=== PATIENT | female | born 1960 | race Caucasian/White ===

== ENCOUNTER 2021-03-22 10:46 | Inpatient (IN) | payer SELFPAY ==
[2021-03-22] MEDS ORDERED: Iopamidol-370 76% 500 ML 1 ML ONE (11:47)
[2021-03-22 12:40] LABS: #Lymphocytes 0.4 thou/uL (1.20-3.40); #Neutrophils 6.5 thou/uL (1.40-6.50); %Basophils 0.3 % (0.0-1.0); %Eosinophils 0.3 % (0.0-10.0); %Lymphocytes 5.4 % (21.0-51.0); Mean Corpuscular HGB CONC 28.5 g/dL (32.0-36.0); Mean Corpuscular Hemoglobin 16.6 pg (27.0-31.0); Mean Corpuscular Volume 58.1 fL (78.0-98.0); Mean Platelet Volume 5.3 fL (7.4-10.4); Platelet Count 552 thou/uL (130-400); RBC Distribution Width 19.3 % (11.5-14.5)
[2021-03-22 12:49] LABS: ALT (SGPT) 25 U/L (8-55); AST (SGOT) 33 U/L (5-34); Albumin 2.9 g/dL (3.5-5.0); Alkaline Phosphatase 75 U/L (40-110); Anion Gap 12 mmol/L (10-20); BUN (Urea Nitrogen) 18 mg/dL (9.8-20.1); Bilirubin, Total 0.4 mg/dL (0.2-1.2); Calc. Creatinine Clearance 0 mL/min (70-130); Calcium 8.4 mg/dL (7.8-10.44); Carbon Dioxide 21 mmol/L (22-29); Chloride 104 mmol/L (98-107); Globulin 2.6 g/dL (2.4-3.5); Glucose 83 mg/dL (70-105); Lipase Less than 4 U/L (8-78); Protein, Total 5.5 g/dL (6.0-8.3); Sodium 133 mmol/L (136-145)
[2021-03-22 12:57] LABS: Reflex for Review?? YES
[2021-03-22 12:58] LABS: Anisocytosis SLIGHT = 6-15 cells (100X) (0-5/hpf); Hypochromia MODERATE=16-30 cells (100X) (0-5/hpf); MDiff Complete? YES; Microcytosis MODERATE=15-30 cells (100X) (0-5/hpf); Ovalocytes SLIGHT = 2-5 cells (100X) (0-1/hpf); Platelet Morphology Comment Appears Increased; Polychromasia SLIGHT = 2-3 cells (100X) (0-2/hpf); Target Cells SLIGHT = 2-5 cells (100X) (0-1/hpf); Tear Drops SLIGHT = 2-5 cells (100X) (0-1/hpf)
[2021-03-22] MEDS ORDERED: Piperacillin/Tazobactam 4.5 GM VIAL ONE (13:59)
[2021-03-22 16:56] VITALS: BMI 18.8
[2021-03-22] MEDS: Sodium Chloride 0.9% 1,000 ML IV SCH (17:50)
[2021-03-22] MEDS ORDERED: GoLYTELY 4,000 ml Bottle PO SCH (18:00)
[2021-03-22] MEDS: Piperacillin/Tazobactam 3.375 GM in Sodium Chloride 0.9% 100 ML IVPB SCH (18:50)
[2021-03-22 19:28] LABS: Hemoglobin 6.7 g/dL (12.0-16.0); Mean Corpuscular HGB CONC 30.7 g/dL (32.0-36.0); Mean Corpuscular Hemoglobin 19.1 pg (27.0-31.0); Mean Corpuscular Volume 62.3 fL (78.0-98.0); Mean Platelet Volume 4.7 fL (7.4-10.4); Platelet Count 451 thou/uL (130-400); RBC Distribution Width 24.8 % (11.5-14.5); Red Blood Cell (RBC) Count 3.53 mill/uL (4.20-5.40); White Blood Cell (WBC) Count 7.1 thou/uL (4.8-10.8)
[2021-03-22] MEDS: Pantoprazole 40 MG VIAL IVP SCH (20:19)
[2021-03-22 20:37] LABS: SARS-CoV-2 NAA Rapid Test Not Detected (NotDetected)
[2021-03-23] MEDS: Piperacillin/Tazobactam 3.375 GM in Sodium Chloride 0.9% 100 ML IVPB SCH ×4 (02:45→21:58)
[2021-03-23] MEDS: Sodium Chloride 0.9% 1,000 ML IV SCH ×3 (02:45→22:29)
[2021-03-23 05:56] LABS: Iron 10 ug/dL (50-170); Iron Binding Capacity, Total 259 mcg/dL (265-497); Transferrin, Serum 207 mg/dL (180-382)
[2021-03-23 06:06] LABS: Ferritin 15.21 ng/mL (10-291); Thyroid Stimulating Hormone 0.9181 uIU/mL (0.35-4.94)
[2021-03-23 06:36] LABS: Hemoglobin 7.5 g/dL (12.0-16.0); Mean Corpuscular HGB CONC 30.3 g/dL (32.0-36.0); Mean Corpuscular Hemoglobin 18.7 pg (27.0-31.0); Mean Corpuscular Volume 61.7 fL (78.0-98.0); Mean Platelet Volume 5.2 fL (7.4-10.4); Platelet Count 535 thou/uL (130-400); Red Blood Cell (RBC) Count 3.99 mill/uL (4.20-5.40); White Blood Cell (WBC) Count 8.4 thou/uL (4.8-10.8)
[2021-03-23 08:50] LABS: Band 15 % (5-11); Hypochromia MODERATE=16-30 cells (100X) (0-5/hpf); Lymphocytes 11 % (21-51); MDiff Complete? YES; Microcytosis MARKED = >30 cells (100X) (0-5/hpf); Monocytes 11 % (0-10); Neutrophil 63 % (42-75); Platelet Morphology Comment Appears Increased; Polychromasia MODERATE = 3-4 cells (100X) (0-2/hpf); Schistocytes SLIGHT = 2-5 cells (100X) (0-1/hpf); Target Cells SLIGHT = 2-5 cells (100X) (0-1/hpf)
[2021-03-23] MEDS ORDERED: PROPOFOL 200 MG/20 ML VIAL ONE (10:28)
[2021-03-23] MEDS ORDERED: Lidocaine 1% PF 5 ML VIAL ONE (10:28)
[2021-03-23] MEDS ORDERED: Promethazine HCl 25 MG/ML VIAL IVPB PRN (11:10)
[2021-03-23] MEDS ORDERED: Ondansetron HCl/PF 4 MG/2 ML Vial IVP PRN (11:10)
[2021-03-23] MEDS ORDERED: Promethazine HCl 25 MG/ML VIAL IM PRN (11:10)
[2021-03-23] MEDS ORDERED: Iron Sucrose Complex 200 MG in Sodium Chloride 0.9% 100 ML IVPB SCH (16:00)
[2021-03-23] MEDS: Iron, Sodium Ferric Gluconate 250 MG in Sodium Chloride 0.9% 250 ML 250 ML IVPB SCH (21:52)
[2021-03-23] MEDS: Pantoprazole 40 MG VIAL IVP SCH (21:52)
[2021-03-24] MEDS: Piperacillin/Tazobactam 3.375 GM in Sodium Chloride 0.9% 100 ML IVPB SCH ×3 (05:53→20:59)
[2021-03-24] MEDS ORDERED: PROPOFOL 200 MG/20 ML VIAL ONE (11:04)
[2021-03-24] MEDS ORDERED: Lidocaine 1% PF 5 ML VIAL ONE (11:04)
[2021-03-24] MEDS ORDERED: Sodium Chloride 0.9% 1,000 ML IV SCH (11:45)
[2021-03-24 12:54] LABS: Anion Gap 11 mmol/L (10-20); BUN (Urea Nitrogen) 10 mg/dL (9.8-20.1); Calc. Creatinine Clearance 97 mL/min (70-130); Calcium 8.3 mg/dL (7.8-10.44); Carbon Dioxide 22 mmol/L (22-29); Chloride 109 mmol/L (98-107); Glucose 83 mg/dL (70-105); Sodium 139 mmol/L (136-145)
[2021-03-24 13:06] LABS: Potassium 2.6 mmol/L (3.5-5.1)
[2021-03-24] MEDS ORDERED: Potassium Chloride 20 MEQ TAB PO SCH ×2 (14:30→17:00)
[2021-03-24] MEDS: Iron, Sodium Ferric Gluconate 250 MG in Sodium Chloride 0.9% 250 ML 250 ML IVPB SCH (17:56)
[2021-03-24] MEDS ORDERED: Potassium Chloride 20 MEQ in Lactated Ringer's 1,000 ML IV SCH ×2 (18:00→18:30)
[2021-03-24] MEDS: Sodium Chloride 0.9% 1,000 ML IV SCH (19:45)
[2021-03-24] MEDS: Pantoprazole 40 MG VIAL IVP SCH (20:56)
[2021-03-25 05:05] LABS: #Basophils 0.1 thou/uL (0.0-0.2); #Eosinphils 0.2 thou/uL (0.0-0.7); #Lymphocytes 0.7 thou/uL (1.20-3.40); #Monocytes 0.8 thou/uL (0.11-0.59); #Neutrophils 4.1 thou/uL (1.40-6.50); %Basophils 1.6 % (0.0-1.0); %Lymphocytes 12.5 % (21.0-51.0); %Monocytes 12.9 % (0.0-10.0); Hemoglobin 6.6 g/dL (12.0-16.0); Mean Corpuscular HGB CONC 28.6 g/dL (32.0-36.0); Mean Corpuscular Hemoglobin 18.4 pg (27.0-31.0); Mean Corpuscular Volume 64.5 fL (78.0-98.0); Mean Platelet Volume 11.1 fL (7.4-10.4); Platelet Count 417 thou/uL (130-400); RBC Distribution Width 25.1 % (11.5-14.5); Red Blood Cell (RBC) Count 3.57 mill/uL (4.20-5.40); White Blood Cell (WBC) Count 5.9 thou/uL (4.8-10.8)
[2021-03-25 05:17] LABS: Anion Gap 8 mmol/L (10-20); BUN (Urea Nitrogen) 7 mg/dL (9.8-20.1); Calc. Creatinine Clearance 99 mL/min (70-130); Calcium 7.9 mg/dL (7.8-10.44); Carbon Dioxide 22 mmol/L (22-29); Chloride 111 mmol/L (98-107); Glucose 75 mg/dL (70-105); Sodium 138 mmol/L (136-145)
[2021-03-25] MEDS: Piperacillin/Tazobactam 3.375 GM in Sodium Chloride 0.9% 100 ML IVPB SCH ×4 (06:28→22:04)
[2021-03-25] MEDS ORDERED: Potassium Chloride 20 MEQ in Lactated Ringer's 1,000 ML IV SCH (08:00)
[2021-03-25] MEDS ORDERED: Potassium Chloride 20 MEQ TAB PO SCH (09:00)
[2021-03-25] MEDS ORDERED: Sodium Chloride 0.9% 10 ML ONE (11:17)
[2021-03-25] MEDS ORDERED: EPINEPHrine 1 MG/ML AMP ONE (11:31)
[2021-03-25] MEDS ORDERED: Bupivacaine PF 0.5% 30 ML VIAL ONE (11:31)
[2021-03-25] MEDS ORDERED: Fentanyl 100 MCG/2 ML VIAL ONE ×4 (11:38→15:25)
[2021-03-25] MEDS ORDERED: Phenylephrine 10 MG/ML VIAL ONE (11:38)
[2021-03-25] MEDS ORDERED: PROPOFOL 200 MG/20 ML VIAL ONE (11:48)
[2021-03-25] MEDS ORDERED: Ondansetron PF 4 MG/2 ML Vial ONE (11:48)
[2021-03-25] MEDS ORDERED: Lidocaine 1% PF 5 ML VIAL ONE (11:48)
[2021-03-25] MEDS ORDERED: Esmolol 100 MG/10 ML VIAL ONE (11:48)
[2021-03-25] MEDS ORDERED: Succinylcholine 200 MG/10 ml SYRINGE FS ONE (11:48)
[2021-03-25] MEDS ORDERED: Rocuronium Bromide 10 MG/ML (10ML VIAL) ONE (11:48)
[2021-03-25] MEDS ORDERED: Glycopyrrolate 0.2 MG/ML 5 ML SYRINGE ONE (11:48)
[2021-03-25] MEDS ORDERED: HYDROmorphone 0.5 MG/0.5 ML SYRINGE ONE (13:01)
[2021-03-25] MEDS ORDERED: Albumin 5% 0 ML ONE (13:02)
[2021-03-25] MEDS ORDERED: Potassium Chloride 40 MEQ in Sodium Chloride 0.45% 1,000 ML IV SCH (14:15)
[2021-03-25] MEDS ORDERED: Promethazine HCl 25 MG/ML VIAL IM PRN ×2 (14:19→14:56)
[2021-03-25] MEDS ORDERED: Ondansetron HCl/PF 4 MG/2 ML Vial IVP PRN (14:19)
[2021-03-25] MEDS ORDERED: HYDROmorphone 2 MG/ML VIAL SLOW IVP PRN (14:19)
[2021-03-25] MEDS ORDERED: Zolpidem Tartrate 5 MG TAB PO PRN (14:56)
[2021-03-25] MEDS ORDERED: diphenhydrAMINE 50 MG/ML VIAL IVP PRN (14:56)
[2021-03-25] MEDS ORDERED: Ondansetron PF 4 MG/2 ML Vial IVP PRN (14:56)
[2021-03-25] MEDS ORDERED: fentaNYL Citrate/PF 2,000 MCG in Sodium Chloride 0.9% 60 ML IV PRN (14:56)
[2021-03-25] MEDS ORDERED: Ketorolac Tromethamine 30 MG/ML VIAL IVP PRN (14:56)
[2021-03-25] MEDS ORDERED: diphenhydrAMINE 25 MG CAP PO PRN (14:56)
[2021-03-25] MEDS ORDERED: Naloxone HCl 0.4 mg/ml Vial IV PRN (14:56)
[2021-03-25] MEDS ORDERED: diphenhydrAMINE 50 MG/ML VIAL IM PRN (14:56)
[2021-03-25] MEDS ORDERED: Communication Order-Pharmacy FS SCH (15:00)
[2021-03-25] MEDS: Potassium Chloride 10 MEQ in Premix Bag 1 BAG IVPB SCH ×4 (17:33→21:01)
[2021-03-25] MEDS: Ketorolac Tromethamine 30 MG/ML VIAL IVP SCH ×2 (17:41→23:32)
[2021-03-25] MEDS: Pantoprazole 40 MG VIAL IVP SCH (19:50)
[2021-03-25] MEDS: Enoxaparin Sodium 40 MG/0.4 ML SYRINGE SC SCH (19:50)
[2021-03-25] MEDS: D5 1/2 NS w/40 mEq KCL 1,000 ML IV SCH (19:50)
[2021-03-25 22:59] LABS: Hemoglobin 10.1 g/dL (12.0-16.0); Mean Corpuscular HGB CONC 30.8 g/dL (32.0-36.0); Mean Corpuscular Hemoglobin 22.1 pg (27.0-31.0); Mean Corpuscular Volume 71.6 fL (78.0-98.0); Mean Platelet Volume 4.8 fL (7.4-10.4); Platelet Count 404 thou/uL (130-400); RBC Distribution Width 28.6 % (11.5-14.5); Red Blood Cell (RBC) Count 4.56 mill/uL (4.20-5.40); White Blood Cell (WBC) Count 9.3 thou/uL (4.8-10.8)
[2021-03-26] MEDS: D5 1/2 NS w/40 mEq KCL 1,000 ML IV SCH ×3 (03:26→14:17)
[2021-03-26 05:56] LABS: #Basophils 0.1 thou/uL (0.0-0.2); #Lymphocytes 0.6 thou/uL (1.20-3.40); #Monocytes 0.6 thou/uL (0.11-0.59); #Neutrophils 8.8 thou/uL (1.40-6.50); %Basophils 0.8 % (0.0-1.0); %Eosinophils 0.2 % (0.0-10.0); %Lymphocytes 5.8 % (21.0-51.0); %Monocytes 5.5 % (0.0-10.0); %Neutrophils 87.8 % (42.0-75.0); Hemoglobin 9.9 g/dL (12.0-16.0); Mean Corpuscular HGB CONC 30.8 g/dL (32.0-36.0); Mean Corpuscular Volume 71.6 fL (78.0-98.0); Mean Platelet Volume 5.2 fL (7.4-10.4); Platelet Count 383 thou/uL (130-400); RBC Distribution Width 29.1 % (11.5-14.5); Red Blood Cell (RBC) Count 4.48 mill/uL (4.20-5.40)
[2021-03-26 06:24] LABS: ALT (SGPT) 13 U/L (8-55); AST (SGOT) 19 U/L (5-34); Albumin 1.8 g/dL (3.5-5.0); Alkaline Phosphatase 52 U/L (40-110); Anion Gap 10 mmol/L (10-20); BUN (Urea Nitrogen) 12 mg/dL (9.8-20.1); Bilirubin, Total 0.5 mg/dL (0.2-1.2); Calc. Creatinine Clearance 82 mL/min (70-130); Calcium 7.9 mg/dL (7.8-10.44); Carbon Dioxide 20 mmol/L (22-29); Chloride 113 mmol/L (98-107); Globulin 1.9 g/dL (2.4-3.5); Glucose 136 mg/dL (70-105); Magnesium 1.7 mg/dL (1.6-2.6); Potassium 4.9 mmol/L (3.5-5.1); Protein, Total 3.7 g/dL (6.0-8.3); Sodium 138 mmol/L (136-145)
[2021-03-26] MEDS: Piperacillin/Tazobactam 3.375 GM in Sodium Chloride 0.9% 100 ML IVPB SCH ×2 (06:24→12:40)
[2021-03-26] MEDS: Ketorolac Tromethamine 30 MG/ML VIAL IVP SCH ×4 (06:25→23:56)
[2021-03-26 11:45] LABS: Actual Bicarbonate (HCO3a) 22.1 mEq/L (22-28); Analyzer IN Cardio OR; Base Excess (BEa) -3.3 mEq/L (-2.0 to +3.0); CO2 Tension 40.8 mmHg (35.0-45.0); Calcium, Ionized (arterial) 1.22 mmol/L (1.12-1.30); Carboxyhemoglobin (COHb) 0.2 gm% (0.0-3.0); Hemoglobin (Hb) 8.7 g/dL (12.0-16.0); O2 Tension (PaO2), arterial 209.5 mmHg (80.0-100.0); Potassium - ABG Lab 3.57 mmol/L (3.70-5.30); Puncture Site Arterial Line; pH, Arterial 7.35 (7.35-7.45)
[2021-03-26 12:27] LABS: Potassium 4.3 mmol/L (3.5-5.1)
[2021-03-26] MEDS ORDERED: Iron Sucrose Complex 200 MG in Sodium Chloride 0.9% 100 ML IVPB SCH (14:00)
[2021-03-26] MEDS: D5 1/2 NS w/20 mEq KCL 1,000 ML IV SCH ×2 (18:14→23:44)
[2021-03-26] MEDS: Iron, Sodium Ferric Gluconate 250 MG in Sodium Chloride 0.9% 250 ML 250 ML IVPB SCH (18:21)
[2021-03-26] MEDS: Enoxaparin Sodium 40 MG/0.4 ML SYRINGE SC SCH (21:27)
[2021-03-26] MEDS: Pantoprazole 40 MG VIAL IVP SCH (21:28)
[2021-03-27 06:09] LABS: #Basophils 0.1 thou/uL (0.0-0.2); #Eosinphils 0.1 thou/uL (0.0-0.7); #Lymphocytes 0.5 thou/uL (1.20-3.40); #Monocytes 0.9 thou/uL (0.11-0.59); #Neutrophils 13.1 thou/uL (1.40-6.50); %Basophils 0.8 % (0.0-1.0); %Eosinophils 0.6 % (0.0-10.0); %Lymphocytes 3.4 % (21.0-51.0); %Monocytes 5.9 % (0.0-10.0); %Neutrophils 89.3 % (42.0-75.0); Hemoglobin 9.3 g/dL (12.0-16.0); Mean Corpuscular HGB CONC 30.8 g/dL (32.0-36.0); Mean Corpuscular Hemoglobin 22.1 pg (27.0-31.0); Mean Corpuscular Volume 71.7 fL (78.0-98.0); Mean Platelet Volume 5.3 fL (7.4-10.4); Platelet Count 354 thou/uL (130-400); RBC Distribution Width 30.3 % (11.5-14.5); Red Blood Cell (RBC) Count 4.19 mill/uL (4.20-5.40); White Blood Cell (WBC) Count 14.7 thou/uL (4.8-10.8)
[2021-03-27] MEDS: Ketorolac Tromethamine 30 MG/ML VIAL IVP SCH ×4 (06:26→23:41)
[2021-03-27] MEDS: D5 1/2 NS w/20 mEq KCL 1,000 ML IV SCH ×3 (06:27→20:11)
[2021-03-27] MEDS: Albumin 25% 25 GM/100 ML BOT IVPB SCH ×3 (12:16→23:41)
[2021-03-27 13:54] LABS: Anion Gap 11 mmol/L (10-20); BUN (Urea Nitrogen) 17 mg/dL (9.8-20.1); Calc. Creatinine Clearance 92 mL/min (70-130); Carbon Dioxide 16 mmol/L (22-29); Chloride 109 mmol/L (98-107); Glucose 85 mg/dL (70-105); Potassium 5.1 mmol/L (3.5-5.1); Sodium 131 mmol/L (136-145)
[2021-03-27] MEDS: Iron, Sodium Ferric Gluconate 250 MG in Sodium Chloride 0.9% 250 ML 250 ML IVPB SCH (16:29)
[2021-03-27] MEDS: Pantoprazole 40 MG VIAL IVP SCH (20:10)
[2021-03-27] MEDS: Enoxaparin Sodium 40 MG/0.4 ML SYRINGE SC SCH (20:11)
[2021-03-28 06:08] LABS: #Eosinphils 0.2 thou/uL (0.0-0.7); #Lymphocytes 0.5 thou/uL (1.20-3.40); #Monocytes 0.6 thou/uL (0.11-0.59); #Neutrophils 9.8 thou/uL (1.40-6.50); %Eosinophils 1.7 % (0.0-10.0); %Lymphocytes 4.7 % (21.0-51.0); %Neutrophils 88.7 % (42.0-75.0); Hemoglobin 7.5 g/dL (12.0-16.0); Mean Corpuscular HGB CONC 31.6 g/dL (32.0-36.0); Mean Corpuscular Hemoglobin 22.5 pg (27.0-31.0); Mean Corpuscular Volume 71.2 fL (78.0-98.0); Mean Platelet Volume 5.6 fL (7.4-10.4); Platelet Count 295 thou/uL (130-400); RBC Distribution Width 30.7 % (11.5-14.5); Red Blood Cell (RBC) Count 3.34 mill/uL (4.20-5.40); White Blood Cell (WBC) Count 11.1 thou/uL (4.8-10.8)
[2021-03-28] MEDS: Ketorolac Tromethamine 30 MG/ML VIAL IVP SCH ×4 (06:17→23:43)
[2021-03-28] MEDS: Albumin 25% 25 GM/100 ML BOT IVPB SCH ×2 (06:17→15:01)
[2021-03-28] MEDS: D5 1/2 NS w/20 mEq KCL 1,000 ML IV SCH ×3 (06:18→18:21)
[2021-03-28 06:26] LABS: Anion Gap 9 mmol/L (10-20); BUN (Urea Nitrogen) 11 mg/dL (9.8-20.1); Calc. Creatinine Clearance 104 mL/min (70-130); Calcium 8.9 mg/dL (7.8-10.44); Carbon Dioxide 17 mmol/L (22-29); Chloride 114 mmol/L (98-107); Glucose 83 mg/dL (70-105); Potassium 4.2 mmol/L (3.5-5.1); Sodium 136 mmol/L (136-145)
[2021-03-28 12:01] LABS: Magnesium 1.7 mg/dL (1.6-2.6); Phosphorus 2.7 mg/dL (2.3-4.7)
[2021-03-28] MEDS ORDERED: Magnesium Sulfate 3 GM in Sodium Chloride 0.9% 100 ML IVPB SCH (13:00)
[2021-03-28] MEDS: Enoxaparin Sodium 40 MG/0.4 ML SYRINGE SC SCH (20:19)
[2021-03-28] MEDS: Pantoprazole 40 MG VIAL IVP SCH (20:19)
[2021-03-29] MEDS: Ketorolac Tromethamine 30 MG/ML VIAL IVP SCH ×2 (05:29→12:37)
[2021-03-29] MEDS: D5 1/2 NS w/20 mEq KCL 1,000 ML IV SCH (05:31)
[2021-03-29 09:52] LABS: #Basophils 0.1 thou/uL (0.0-0.2); #Eosinphils 0.1 thou/uL (0.0-0.7); #Lymphocytes 0.4 thou/uL (1.20-3.40); #Monocytes 0.6 thou/uL (0.11-0.59); #Neutrophils 11.1 thou/uL (1.40-6.50); %Basophils 0.9 % (0.0-1.0); %Eosinophils 1.1 % (0.0-10.0); %Lymphocytes 3.3 % (21.0-51.0); %Monocytes 4.4 % (0.0-10.0); %Neutrophils 90.3 % (42.0-75.0); Hemoglobin 8.3 g/dL (12.0-16.0); Mean Corpuscular HGB CONC 31.1 g/dL (32.0-36.0); Mean Corpuscular Hemoglobin 22.7 pg (27.0-31.0); Mean Corpuscular Volume 73.1 fL (78.0-98.0); Mean Platelet Volume 5.3 fL (7.4-10.4); Platelet Count 320 thou/uL (130-400); RBC Distribution Width 30.4 % (11.5-14.5); Red Blood Cell (RBC) Count 3.64 mill/uL (4.20-5.40); White Blood Cell (WBC) Count 12.3 thou/uL (4.8-10.8)
[2021-03-29 10:03] LABS: Anion Gap 10 mmol/L (10-20); BUN (Urea Nitrogen) 8 mg/dL (9.8-20.1); Calc. Creatinine Clearance 97 mL/min (70-130); Calcium 8.6 mg/dL (7.8-10.44); Carbon Dioxide 17 mmol/L (22-29); Chloride 112 mmol/L (98-107); Glucose 102 mg/dL (70-105); Magnesium 1.9 mg/dL (1.6-2.6); Phosphorus 2.6 mg/dL (2.3-4.7); Potassium 3.9 mmol/L (3.5-5.1); Sodium 135 mmol/L (136-145)
[2021-03-29] MEDS ORDERED: Magnesium Sulfate 2 GM in Sodium Chloride 0.9% 100 ML IVPB SCH (10:45)
[2021-03-29] MEDS ORDERED: traMADol HCl 50 MG TAB PO PRN ×2 (15:49)
[2021-03-29] MEDS ORDERED: Cyclobenzaprine 10 MG TAB PO PRN (15:49)
[2021-03-29] MEDS ORDERED: Acetaminophen/Codeine 30-300mg Tablet PO PRN (15:52)
[2021-03-29] MEDS ORDERED: Acetaminophen 500 MG TAB PO SCH (18:00)
[2021-03-29] MEDS: Ibuprofen 800 MG TAB PO SCH (18:09)
[2021-03-29] MEDS: Acetaminophen 325 MG TAB PO SCH ×2 (18:11→23:59)
[2021-03-29] MEDS: Enoxaparin Sodium 40 MG/0.4 ML SYRINGE SC SCH (20:22)
[2021-03-29] MEDS: Pantoprazole 40 MG VIAL IVP SCH (20:23)
[2021-03-30] MEDS: Acetaminophen 325 MG TAB PO SCH ×3 (05:13→17:46)
[2021-03-30] MEDS: Ibuprofen 800 MG TAB PO SCH ×3 (09:48→17:44)
[2021-03-30 13:20] LABS: SARS-CoV-2 PCR by NAA DETECTED (NotDetected)
[2021-03-30] MEDS: Enoxaparin Sodium 40 MG/0.4 ML SYRINGE SC SCH (20:37)
[2021-03-30] MEDS: Pantoprazole 40 MG VIAL IVP SCH (20:37)
[2021-03-31] MEDS: Acetaminophen 325 MG TAB PO SCH ×3 (00:02→13:26)
[2021-03-31] MEDS: Ibuprofen 800 MG TAB PO SCH ×2 (01:55→08:55)
[2021-03-31 15:51] VITALS: BP 96/61; TEMP 98.3
== END 2021-03-31 15:53 | disposition home or self-care (01) | DRG 329 ==
LOC: ERS 10:46 → SURG B 15:55
PROVIDERS: ADMIT Internal Medicine; ATTEND Internal Medicine
PROC: 30233N1 Transfusion of Nonautologous Red Blood Cells into Peripheral Vein, Percutaneous Approach (ICD-10-PCS; 2021-03-22)
PROC: 0DBM8ZX Excision of Descending Colon, Via Natural or Artificial Opening Endoscopic, Diagnostic (ICD-10-PCS; 2021-03-23)
PROC: 0DBL8ZX Excision of Transverse Colon, Via Natural or Artificial Opening Endoscopic, Diagnostic (ICD-10-PCS; 2021-03-23)
PROC: 0DBN8ZX Excision of Sigmoid Colon, Via Natural or Artificial Opening Endoscopic, Diagnostic (ICD-10-PCS; 2021-03-23)
PROC: 0DBL8ZZ Excision of Transverse Colon, Via Natural or Artificial Opening Endoscopic (ICD-10-PCS; 2021-03-23)
PROC: 0DB98ZX Excision of Duodenum, Via Natural or Artificial Opening Endoscopic, Diagnostic (ICD-10-PCS; 2021-03-24)
PROC: 0DB80ZZ Excision of Small Intestine, Open Approach (ICD-10-PCS; principal; 2021-03-25)
PROC: 0DJD4ZZ Inspection of Lower Intestinal Tract, Percutaneous Endoscopic Approach (ICD-10-PCS; 2021-03-25)
PROC: 8E0ZXY6 Isolation (ICD-10-PCS; 2021-03-29)
DX: C17.9 Malignant neoplasm of small intestine, unspecified (principal); E43 Unspecified severe protein-calorie malnutrition; U07.1 COVID-19; K56.600 Partial intestinal obstruction, unspecified as to cause; E87.1 Hypo-osmolality and hyponatremia; K22.10 Ulcer of esophagus without bleeding; Z68.1 Body mass index [BMI] 19.9 or less, adult; D62 Acute posthemorrhagic anemia; K56.7 Ileus, unspecified; M79.89 Other specified soft tissue disorders; Z96.642 Presence of left artificial hip joint; M79.604 Pain in right leg; K52.9 Noninfective gastroenteritis and colitis, unspecified; K21.00 Gastro-esophageal reflux disease with esophagitis, without bleeding; K57.30 Diverticulosis of large intestine without perforation or abscess without bleeding; K63.5 Polyp of colon; K29.80 Duodenitis without bleeding; N20.0 Calculus of kidney; D49.0 Neoplasm of unspecified behavior of digestive system; D50.9 Iron deficiency anemia, unspecified; D75.839 Thrombocytosis, unspecified; E87.6 Hypokalemia; E83.42 Hypomagnesemia; E83.39 Other disorders of phosphorus metabolism; Z90.49 Acquired absence of other specified parts of digestive tract; Z85.038 Personal history of other malignant neoplasm of large intestine; Z92.3 Personal history of irradiation; Z92.21 Personal history of antineoplastic chemotherapy; Z88.0 Allergy status to penicillin
CPT/HCPCS: 36415; 36430; 74018; 74177; 80048; 80053; 82274; 82378; 82607; 82728; 82746; 82805; 83540; 83550; 83690; 83735; 83880; 84100; 84443; 84466; 85025; 85060; 86850; 86900; 86901; 87324; 87449; 88305; 88309; 96365; C1776; C9113; J0171; J1170; J1650; J1885; J2370; J2405; J2543; J2704; J2916; J3010; J3475; J3480; J3490; J7050; P9016; P9045; P9047; Q9967; S0020; U0002; U0003; U0005

== ENCOUNTER 2021-04-02 10:53 | Inpatient (IN) | payer SELFPAY ==
[~2021-04-02 10:53] MED LIST: Heparin 1,000 UNITS/ML VIAL ONE
[2021-04-02 14:10] LABS: #Lymphocytes 0.5 thou/uL (1.20-3.40); #Monocytes 0.3 thou/uL (0.11-0.59); %Eosinophils 0.3 % (0.0-10.0); %Lymphocytes 9.6 % (21.0-51.0); %Monocytes 5.4 % (0.0-10.0); %Neutrophils 84.7 % (42.0-75.0); Hemoglobin 9.7 g/dL (12.0-16.0); Mean Corpuscular HGB CONC 29.1 g/dL (32.0-36.0); Mean Corpuscular Hemoglobin 21.4 pg (27.0-31.0); Mean Corpuscular Volume 73.5 fL (78.0-98.0); RBC Distribution Width 29.7 % (11.5-14.5); Red Blood Cell (RBC) Count 4.54 mill/uL (4.20-5.40); White Blood Cell (WBC) Count 4.8 thou/uL (4.8-10.8)
[2021-04-02 14:30] LABS: ALT (SGPT) 16 U/L (8-55); AST (SGOT) 31 U/L (5-34); Albumin 2.3 g/dL (3.5-5.0); Alkaline Phosphatase 286 U/L (40-110); Anion Gap 15 mmol/L (10-20); BUN (Urea Nitrogen) 17 mg/dL (9.8-20.1); Bilirubin, Total 0.6 mg/dL (0.2-1.2); Calc. Creatinine Clearance 0 mL/min (70-130); Calcium 8.6 mg/dL (7.8-10.44); Carbon Dioxide 18 mmol/L (22-29); Chloride 106 mmol/L (98-107); Globulin 2.7 g/dL (2.4-3.5); Glucose 82 mg/dL (70-105); Sodium 136 mmol/L (136-145)
[2021-04-02 14:35] LABS: Platelet Count 326 thou/uL (130-400); Potassium 2.7 mmol/L (3.5-5.1)
[2021-04-02 14:36] LABS: Hypochromia SLIGHT = 6-15 cells (100X) (0-5/hpf); MDiff Complete? YES; Microcytosis SLIGHT = 6-15 cells (100X) (0-5/hpf); Ovalocytes SLIGHT = 2-5 cells (100X) (0-1/hpf); Platelet Morphology Comment Appears Adequate; Polychromasia SLIGHT = 2-3 cells (100X) (0-2/hpf); Target Cells MODERATE= 6-15 cells (100X) (0-1/hpf)
[2021-04-02] MEDS ORDERED: Ketorolac Tromethamine 30 MG/ML VIAL ONE (15:18)
[2021-04-02] MEDS ORDERED: ceFAZolin 2 GM/Dextrose 50 ML IVPB ONE ×2 (15:18→16:40)
[2021-04-02 15:19] LABS: SARS-CoV-2 NAA Rapid Test DETECTED (NotDetected)
[2021-04-02] MEDS ORDERED: Fentanyl 100 MCG/2 ML VIAL ONE ×4 (16:16→20:23)
[2021-04-02] MEDS ORDERED: Ondansetron PF 4 MG/2 ML Vial ONE (16:52)
[2021-04-02] MEDS ORDERED: Lidocaine 1% PF 5 ML VIAL ONE (16:52)
[2021-04-02] MEDS ORDERED: Rocuronium Bromide 10 MG/ML (10ML VIAL) ONE (16:52)
[2021-04-02] MEDS ORDERED: Succinylcholine 200 MG/10 ml SYRINGE FS ONE (16:52)
[2021-04-02] MEDS ORDERED: Glycopyrrolate 0.2 MG/ML 5 ML SYRINGE ONE (16:52)
[2021-04-02] MEDS ORDERED: Dexamethasone 20 MG/5 ML VIAL ONE (16:52)
[2021-04-02] MEDS ORDERED: PHENYLEPHRINE-NS 100 MCG/ML 10 ML SYRINGE ONE ×2 (16:52→18:21)
[2021-04-02] MEDS ORDERED: PROPOFOL 200 MG/20 ML VIAL ONE (16:52)
[2021-04-02] MEDS ORDERED: Promethazine HCl 25 MG/ML VIAL IM PRN (19:39)
[2021-04-02] MEDS ORDERED: Promethazine HCl 25 MG/ML VIAL IVPB PRN (19:39)
[2021-04-02] MEDS ORDERED: Ondansetron HCl/PF 4 MG/2 ML Vial IVP PRN (19:39)
[2021-04-02] MEDS ORDERED: HYDROmorphone 2 MG/ML VIAL SLOW IVP PRN (19:39)
[2021-04-02 20:44] LABS: Anion Gap 12 mmol/L (10-20); BUN (Urea Nitrogen) 18 mg/dL (9.8-20.1); Calc. Creatinine Clearance 0 mL/min (70-130); Calcium 8.5 mg/dL (7.8-10.44); Carbon Dioxide 19 mmol/L (22-29); Chloride 108 mmol/L (98-107); Glucose 77 mg/dL (70-105); Sodium 136 mmol/L (136-145)
[2021-04-02 20:59] LABS: Potassium 2.9 mmol/L (3.5-5.1)
[2021-04-02] MEDS ORDERED: Dextrose 50% Abboject 50 ML SYRINGE SLOW IVP PRN (21:07)
[2021-04-02] MEDS ORDERED: Ondansetron PF 4 MG/2 ML Vial IVP PRN (21:07)
[2021-04-02] MEDS ORDERED: Dextrose 5% in Water 1,000 ML IV PRN (21:07)
[2021-04-02] MEDS ORDERED: hydrALAZINE 20 MG/ML VIAL SLOW IVP PRN (21:07)
[2021-04-02] MEDS ORDERED: Meropenem 1 GM in Sodium Chloride 0.9% 100 ML IVPB SCH (22:00)
[2021-04-02] MEDS: Famotidine/PF 20 mg/2ml Vial SLOW IVP SCH (23:44)
[2021-04-02] MEDS: D5 1/2 NS w/20 mEq KCL 1,000 ML IV SCH (23:45)
[2021-04-02] MEDS: Morphine 4 MG/ML VIAL SLOW IVP PRN (23:46)
[2021-04-03] MEDS: Potassium Chloride 20 MEQ in Premix Bag 1 BAG IVPB SCH ×3 (00:07→17:36)
[2021-04-03 01:47] VITALS: BMI 24.3
[2021-04-03 05:32] LABS: Anion Gap 16 mmol/L (10-20); BUN (Urea Nitrogen) 19 mg/dL (9.8-20.1); Calc. Creatinine Clearance 128 mL/min (70-130); Calcium 8.1 mg/dL (7.8-10.44); Carbon Dioxide 16 mmol/L (22-29); Chloride 109 mmol/L (98-107); Glucose 75 mg/dL (70-105); Potassium 3.9 mmol/L (3.5-5.1); Sodium 137 mmol/L (136-145)
[2021-04-03] MEDS: D5 1/2 NS w/20 mEq KCL 1,000 ML IV SCH ×2 (06:17→15:18)
[2021-04-03] MEDS: Meropenem 1 GM in Sodium Chloride 0.9% 100 ML IVPB SCH ×3 (06:18→23:32)
[2021-04-03] MEDS: Morphine 4 MG/ML VIAL SLOW IVP PRN ×3 (06:54→15:15)
[2021-04-03 07:07] LABS: Hemoglobin 8.9 g/dL (12.0-16.0); Mean Corpuscular HGB CONC 29.7 g/dL (32.0-36.0); Mean Corpuscular Hemoglobin 21.7 pg (27.0-31.0); Mean Corpuscular Volume 72.9 fL (78.0-98.0); Mean Platelet Volume 6.8 fL (7.4-10.4); Platelet Count 225 thou/uL (130-400); RBC Distribution Width 29.8 % (11.5-14.5); Red Blood Cell (RBC) Count 4.12 mill/uL (4.20-5.40); White Blood Cell (WBC) Count 10.5 thou/uL (4.8-10.8)
[2021-04-03] MEDS: Enoxaparin Sodium 40 MG/0.4 ML SYRINGE SC SCH (08:47)
[2021-04-03] MEDS: Famotidine/PF 20 mg/2ml Vial SLOW IVP SCH ×2 (08:47→20:15)
[2021-04-03 10:44] LABS: Anisocytosis MODERATE=16-30 cells (100X) (0-5/hpf); Band 33 % (5-11); Hypochromia MODERATE=16-30 cells (100X) (0-5/hpf); Lymphocytes 3 % (21-51); MDiff Complete? YES; Microcytosis SLIGHT = 6-15 cells (100X) (0-5/hpf); Monocytes 2 % (0-10); Neutrophil 62 % (42-75); Platelet Morphology Comment Appears Adequate; Polychromasia SLIGHT = 2-3 cells (100X) (0-2/hpf); Target Cells SLIGHT = 2-5 cells (100X) (0-1/hpf)
[2021-04-03] MEDS ORDERED: D5 LR w/20 mEq KCL 1,000 ML IV SCH (14:15)
[2021-04-03] MEDS: Dextrose 5%-Lactated Ringers 1,000 ML IV SCH (15:18)
[2021-04-04] MEDS: Morphine 4 MG/ML VIAL SLOW IVP PRN ×7 (00:18→22:32)
[2021-04-04] MEDS: Dextrose 5%-Lactated Ringers 1,000 ML IV SCH ×3 (03:51→15:54)
[2021-04-04] MEDS: Potassium Chloride 20 MEQ in Premix Bag 1 BAG IVPB SCH ×4 (03:52→23:46)
[2021-04-04] MEDS: Meropenem 1 GM in Sodium Chloride 0.9% 100 ML IVPB SCH ×3 (06:14→22:29)
[2021-04-04 06:59] LABS: Hemoglobin 7.7 g/dL (12.0-16.0); Mean Corpuscular HGB CONC 30.1 g/dL (32.0-36.0); Mean Corpuscular Hemoglobin 21.9 pg (27.0-31.0); Mean Corpuscular Volume 72.7 fL (78.0-98.0); Mean Platelet Volume 6.5 fL (7.4-10.4); Platelet Count 301 thou/uL (130-400); RBC Distribution Width 29.3 % (11.5-14.5)
[2021-04-04 07:17] LABS: #Lymphocytes 0.5 thou/uL (1.20-3.40); #Monocytes 0.4 thou/uL (0.11-0.59); %Eosinophils 0.6 % (0.0-10.0); %Monocytes 5.8 % (0.0-10.0); %Neutrophils 86.6 % (42.0-75.0); Anisocytosis MODERATE=16-30 cells (100X) (0-5/hpf); Hypochromia SLIGHT = 6-15 cells (100X) (0-5/hpf); MDiff Complete? YES; Microcytosis SLIGHT = 6-15 cells (100X) (0-5/hpf); Platelet Morphology Comment Appears Adequate; Polychromasia SLIGHT = 2-3 cells (100X) (0-2/hpf); Schistocytes SLIGHT = 2-5 cells (100X) (0-1/hpf); Target Cells MODERATE= 6-15 cells (100X) (0-1/hpf); Tear Drops SLIGHT = 2-5 cells (100X) (0-1/hpf)
[2021-04-04 07:18] LABS: Anion Gap 10 mmol/L (10-20); BUN (Urea Nitrogen) 16 mg/dL (9.8-20.1); Calc. Creatinine Clearance 143 mL/min (70-130); Carbon Dioxide 22 mmol/L (22-29); Chloride 107 mmol/L (98-107); Glucose 86 mg/dL (70-105); Magnesium 1.7 mg/dL (1.6-2.6); Phosphorus 2.6 mg/dL (2.3-4.7); Potassium 3.6 mmol/L (3.5-5.1); Sodium 135 mmol/L (136-145)
[2021-04-04] MEDS: Famotidine/PF 20 mg/2ml Vial SLOW IVP SCH ×2 (09:53→19:48)
[2021-04-04] MEDS: Enoxaparin Sodium 40 MG/0.4 ML SYRINGE SC SCH (09:53)
[2021-04-04] MEDS ORDERED: Iopamidol 300 61% 50 ML VIAL FS ONE (12:42)
[2021-04-04] MEDS: Multivitamins, Adult 10 ML, TRACE ELEMENT CONCENTRATE 1 ML in CLINIMIX E 5/20 2,000 ML IV SCH (15:54)
[2021-04-04 16:59] LABS: #Basophils 0.2 thou/uL (0.0-0.2); #Lymphocytes 0.3 thou/uL (1.20-3.40); #Monocytes 0.5 thou/uL (0.11-0.59); #Neutrophils 7.3 thou/uL (1.40-6.50); %Basophils 2.1 % (0.0-1.0); %Eosinophils 0.5 % (0.0-10.0); %Lymphocytes 4.1 % (21.0-51.0); %Monocytes 5.5 % (0.0-10.0); %Neutrophils 87.9 % (42.0-75.0); Hemoglobin 9.3 g/dL (12.0-16.0); Mean Corpuscular HGB CONC 30.4 g/dL (32.0-36.0); Mean Corpuscular Hemoglobin 22.3 pg (27.0-31.0); Mean Corpuscular Volume 73.6 fL (78.0-98.0); Mean Platelet Volume 5.9 fL (7.4-10.4); Platelet Count 250 thou/uL (130-400); RBC Distribution Width 29.8 % (11.5-14.5); Red Blood Cell (RBC) Count 4.18 mill/uL (4.20-5.40); White Blood Cell (WBC) Count 8.4 thou/uL (4.8-10.8)
[2021-04-05] MEDS: Morphine 4 MG/ML VIAL SLOW IVP PRN ×6 (04:51→21:37)
[2021-04-05] MEDS: Potassium Chloride 20 MEQ in Premix Bag 1 BAG IVPB SCH ×3 (06:01→23:50)
[2021-04-05] MEDS: Meropenem 1 GM in Sodium Chloride 0.9% 100 ML IVPB SCH ×3 (06:02→20:32)
[2021-04-05 06:56] LABS: ALT (SGPT) 10 U/L (8-55); AST (SGOT) 13 U/L (5-34); Albumin 1.7 g/dL (3.5-5.0); Alkaline Phosphatase 166 U/L (40-110); Anion Gap 7 mmol/L (10-20); BUN (Urea Nitrogen) 13 mg/dL (9.8-20.1); Bilirubin, Total 0.3 mg/dL (0.2-1.2); Calc. Creatinine Clearance 154 mL/min (70-130); Calcium 7.8 mg/dL (7.8-10.44); Carbon Dioxide 28 mmol/L (22-29); Chloride 105 mmol/L (98-107); Globulin 2.4 g/dL (2.4-3.5); Glucose 113 mg/dL (70-105); Potassium 4.2 mmol/L (3.5-5.1); Protein, Total 4.1 g/dL (6.0-8.3); Sodium 136 mmol/L (136-145)
[2021-04-05] MEDS: Enoxaparin Sodium 40 MG/0.4 ML SYRINGE SC SCH (09:30)
[2021-04-05] MEDS: Famotidine/PF 20 mg/2ml Vial SLOW IVP SCH ×2 (09:31→20:32)
[2021-04-05] MEDS: Multivitamins, Adult 10 ML, TRACE ELEMENT CONCENTRATE 1 ML in CLINIMIX E 5/20 2,000 ML IV SCH (15:07)
[2021-04-05] MEDS: Dextrose 5%-Lactated Ringers 1,000 ML IV SCH (15:12)
[2021-04-06] MEDS: Morphine 4 MG/ML VIAL SLOW IVP PRN ×7 (00:42→22:30)
[2021-04-06 05:48] LABS: #Eosinphils 0.1 thou/uL (0.0-0.7); #Lymphocytes 0.6 thou/uL (1.20-3.40); #Monocytes 0.9 thou/uL (0.11-0.59); #Neutrophils 6.2 thou/uL (1.40-6.50); %Eosinophils 0.7 % (0.0-10.0); %Lymphocytes 7.3 % (21.0-51.0); %Monocytes 11.9 % (0.0-10.0); %Neutrophils 80.2 % (42.0-75.0); Band 5 % (5-11); Hemoglobin 7.4 g/dL (12.0-16.0); Hypochromia SLIGHT = 6-15 cells (100X) (0-5/hpf); Lymphocytes 5 % (21-51); MDiff Complete? YES; Mean Corpuscular HGB CONC 29.7 g/dL (32.0-36.0); Mean Corpuscular Hemoglobin 21.4 pg (27.0-31.0); Mean Corpuscular Volume 71.9 fL (78.0-98.0); Mean Platelet Volume 5.5 fL (7.4-10.4); Monocytes 13 % (0-10); Neutrophil 77 % (42-75); Platelet Count 429 thou/uL (130-400); Platelet Morphology Comment Appears Increased; RBC Distribution Width 29.9 % (11.5-14.5); Red Blood Cell (RBC) Count 3.44 mill/uL (4.20-5.40); White Blood Cell (WBC) Count 7.7 thou/uL (4.8-10.8)
[2021-04-06 05:57] LABS: ALT (SGPT) 8 U/L (8-55); AST (SGOT) 11 U/L (5-34); Albumin 1.7 g/dL (3.5-5.0); Alkaline Phosphatase 131 U/L (40-110); Anion Gap 7 mmol/L (10-20); BUN (Urea Nitrogen) 9 mg/dL (9.8-20.1); Bilirubin, Total 0.3 mg/dL (0.2-1.2); Calc. Creatinine Clearance 154 mL/min (70-130); Calcium 7.6 mg/dL (7.8-10.44); Carbon Dioxide 29 mmol/L (22-29); Chloride 101 mmol/L (98-107); Globulin 2.3 g/dL (2.4-3.5); Glucose 83 mg/dL (70-105); Potassium 4.3 mmol/L (3.5-5.1); Sodium 133 mmol/L (136-145)
[2021-04-06] MEDS: Meropenem 1 GM in Sodium Chloride 0.9% 100 ML IVPB SCH ×3 (05:59→22:09)
[2021-04-06] MEDS: Potassium Chloride 20 MEQ in Premix Bag 1 BAG IVPB SCH ×3 (05:59→22:10)
[2021-04-06] MEDS: Enoxaparin Sodium 40 MG/0.4 ML SYRINGE SC SCH (09:08)
[2021-04-06] MEDS: Famotidine/PF 20 mg/2ml Vial SLOW IVP SCH ×2 (09:09→19:31)
[2021-04-06] MEDS: Dextrose 5%-Lactated Ringers 1,000 ML IV SCH (15:05)
[2021-04-06] MEDS: Fat Emulsion 250 ML IVPB SCH (15:06)
[2021-04-06] MEDS: Multivitamins, Adult 10 ML, TRACE ELEMENT CONCENTRATE 1 ML in CLINIMIX E 5/20 2,000 ML IV SCH (15:07)
[2021-04-07] MEDS: Morphine 4 MG/ML VIAL SLOW IVP PRN ×3 (04:31→09:21)
[2021-04-07] MEDS: Potassium Chloride 20 MEQ in Premix Bag 1 BAG IVPB SCH ×2 (06:17→17:07)
[2021-04-07] MEDS: Meropenem 1 GM in Sodium Chloride 0.9% 100 ML IVPB SCH ×3 (06:51→22:13)
[2021-04-07 08:57] LABS: #Eosinphils 0.1 thou/uL (0.0-0.7); #Lymphocytes 0.4 thou/uL (1.20-3.40); #Monocytes 1.1 thou/uL (0.11-0.59); #Neutrophils 9.6 thou/uL (1.40-6.50); %Basophils 0.3 % (0.0-1.0); %Eosinophils 0.7 % (0.0-10.0); %Lymphocytes 3.8 % (21.0-51.0); %Monocytes 9.9 % (0.0-10.0); %Neutrophils 85.3 % (42.0-75.0); Hemoglobin 6.8 g/dL (12.0-16.0); Mean Corpuscular HGB CONC 30.1 g/dL (32.0-36.0); Mean Platelet Volume 10.7 fL (7.4-10.4); Platelet Count 438 thou/uL (130-400); RBC Distribution Width 30.2 % (11.5-14.5); Red Blood Cell (RBC) Count 3.08 mill/uL (4.20-5.40); White Blood Cell (WBC) Count 11.3 thou/uL (4.8-10.8)
[2021-04-07] MEDS: Enoxaparin Sodium 40 MG/0.4 ML SYRINGE SC SCH (09:21)
[2021-04-07] MEDS: Famotidine/PF 20 mg/2ml Vial SLOW IVP SCH (09:22)
[2021-04-07 10:28] LABS: Hypochromia MODERATE=16-30 cells (100X) (0-5/hpf); MDiff Complete? YES; Microcytosis MODERATE=15-30 cells (100X) (0-5/hpf); Platelet Morphology Comment Appears Increased; Polychromasia MODERATE = 3-4 cells (100X) (0-2/hpf); Target Cells SLIGHT = 2-5 cells (100X) (0-1/hpf)
[2021-04-07] MEDS ORDERED: Fentanyl 100 MCG/2 ML VIAL ONE ×2 (11:54→14:19)
[2021-04-07] MEDS ORDERED: Morphine 4 MG/ML VIAL ONE (14:12)
[2021-04-07] MEDS ORDERED: Lidocaine 1% PF 5 ML VIAL ONE (14:41)
[2021-04-07] MEDS ORDERED: Dexamethasone 20 MG/5 ML VIAL ONE (14:41)
[2021-04-07] MEDS ORDERED: PROPOFOL 200 MG/20 ML VIAL ONE (14:41)
[2021-04-07] MEDS ORDERED: Ondansetron PF 4 MG/2 ML Vial ONE (14:41)
[2021-04-07] MEDS ORDERED: traMADol HCl 50 MG TAB PO PRN ×2 (14:49→16:01)
[2021-04-07] MEDS ORDERED: Bupivacaine PF 0.5% 30 ML VIAL ONE (15:07)
[2021-04-07] MEDS ORDERED: EPINEPHrine 1 MG/ML AMP ONE (15:07)
[2021-04-07] MEDS ORDERED: Promethazine HCl 25 MG/ML VIAL IM PRN (15:41)
[2021-04-07] MEDS ORDERED: Promethazine HCl 25 MG/ML VIAL IVPB PRN (15:41)
[2021-04-07] MEDS ORDERED: Ondansetron HCl/PF 4 MG/2 ML Vial IVP PRN (15:41)
[2021-04-07] MEDS ORDERED: Ketorolac Tromethamine 30 MG/ML VIAL IVP SCH (16:15)
[2021-04-07] MEDS: Multivitamins, Adult 10 ML, TRACE ELEMENT CONCENTRATE 1 ML in CLINIMIX E 5/20 2,000 ML IV SCH (17:07)
[2021-04-07] MEDS: Acetaminophen 500 MG TAB PO SCH ×2 (17:34→23:51)
[2021-04-07] MEDS ORDERED: Acetaminophen 325 MG TAB PO SCH (18:00)
[2021-04-07] MEDS: Dextrose 5%-Lactated Ringers 1,000 ML IV SCH (22:00)
[2021-04-07] MEDS: Ketorolac Tromethamine 30 MG/ML VIAL IVP PRN (22:21)
[2021-04-08] MEDS: Meropenem 1 GM in Sodium Chloride 0.9% 100 ML IVPB SCH ×3 (05:30→22:16)
[2021-04-08] MEDS: Acetaminophen 500 MG TAB PO SCH ×4 (05:32→23:23)
[2021-04-08 05:49] LABS: Hemoglobin 7.5 g/dL (12.0-16.0); Mean Corpuscular HGB CONC 30.4 g/dL (32.0-36.0); Mean Corpuscular Hemoglobin 23.1 pg (27.0-31.0); Mean Corpuscular Volume 76.1 fL (78.0-98.0); Mean Platelet Volume 9.8 fL (7.4-10.4); Platelet Count 473 thou/uL (130-400); RBC Distribution Width 28.5 % (11.5-14.5); Red Blood Cell (RBC) Count 3.24 mill/uL (4.20-5.40); White Blood Cell (WBC) Count 11.2 thou/uL (4.8-10.8)
[2021-04-08 06:08] LABS: Anion Gap 9 mmol/L (10-20); BUN (Urea Nitrogen) 15 mg/dL (9.8-20.1); Calc. Creatinine Clearance 154 mL/min (70-130); Calcium 7.9 mg/dL (7.8-10.44); Carbon Dioxide 27 mmol/L (22-29); Chloride 106 mmol/L (98-107); Glucose 100 mg/dL (70-105); Potassium 4.1 mmol/L (3.5-5.1); Sodium 138 mmol/L (136-145)
[2021-04-08 06:09] LABS: #Lymphocytes 0.4 thou/uL (1.20-3.40); #Monocytes 1.1 thou/uL (0.11-0.59); #Neutrophils 9.7 thou/uL (1.40-6.50); %Eosinophils 0.1 % (0.0-10.0); %Lymphocytes 3.9 % (21.0-51.0); %Monocytes 9.8 % (0.0-10.0); %Neutrophils 86.1 % (42.0-75.0); Anisocytosis MODERATE=16-30 cells (100X) (0-5/hpf); Hypochromia SLIGHT = 6-15 cells (100X) (0-5/hpf); Large Platelets SLIGHT; MDiff Complete? YES; Microcytosis SLIGHT = 6-15 cells (100X) (0-5/hpf); Platelet Morphology Comment Appears Increased; Polychromasia SLIGHT = 2-3 cells (100X) (0-2/hpf); Target Cells SLIGHT = 2-5 cells (100X) (0-1/hpf)
[2021-04-08] MEDS ORDERED: Zinc Sulfate 220 MG CAP PO SCH (09:00)
[2021-04-08] MEDS: Enoxaparin Sodium 40 MG/0.4 ML SYRINGE SC SCH (09:02)
[2021-04-08] MEDS: Ketorolac Tromethamine 30 MG/ML VIAL IVP PRN ×3 (09:03→21:01)
[2021-04-08] MEDS: Zinc Sulfate 220 MG CAP PO SCH ×2 (09:05→20:39)
[2021-04-08] MEDS: Multivitamins, Adult 10 ML, TRACE ELEMENT CONCENTRATE 1 ML in CLINIMIX E 5/20 2,000 ML IV SCH (14:44)
[2021-04-08] MEDS: Fat Emulsion 250 ML IVPB SCH (14:44)
[2021-04-09] MEDS: Morphine 4 MG/ML VIAL SLOW IVP PRN ×4 (03:07→21:35)
[2021-04-09] MEDS: Acetaminophen 500 MG TAB PO SCH ×2 (05:08→18:36)
[2021-04-09] MEDS: Meropenem 1 GM in Sodium Chloride 0.9% 100 ML IVPB SCH ×3 (05:08→21:34)
[2021-04-09] MEDS: Ketorolac Tromethamine 30 MG/ML VIAL IVP PRN ×2 (06:00→17:18)
[2021-04-09 06:01] LABS: Anion Gap 12 mmol/L (10-20); BUN (Urea Nitrogen) 20 mg/dL (9.8-20.1); Calc. Creatinine Clearance 154 mL/min (70-130); Calcium 7.9 mg/dL (7.8-10.44); Carbon Dioxide 23 mmol/L (22-29); Chloride 107 mmol/L (98-107); Glucose 96 mg/dL (70-105); Potassium 3.7 mmol/L (3.5-5.1); Sodium 138 mmol/L (136-145)
[2021-04-09 06:15] LABS: #Eosinphils 0.2 thou/uL (0.0-0.7); #Lymphocytes 0.7 thou/uL (1.20-3.40); #Monocytes 0.7 thou/uL (0.11-0.59); #Neutrophils 14.8 thou/uL (1.40-6.50); %Basophils 0.1 % (0.0-1.0); %Eosinophils 1.2 % (0.0-10.0); %Lymphocytes 4.2 % (21.0-51.0); %Monocytes 4.5 % (0.0-10.0); %Neutrophils 90.1 % (42.0-75.0); Hemoglobin 7.7 g/dL (12.0-16.0); Mean Corpuscular HGB CONC 30.2 g/dL (32.0-36.0); Mean Corpuscular Hemoglobin 23.2 pg (27.0-31.0); Mean Corpuscular Volume 76.8 fL (78.0-98.0); Mean Platelet Volume 9.1 fL (7.4-10.4); Platelet Count 587 thou/uL (130-400); RBC Distribution Width 29.1 % (11.5-14.5); Red Blood Cell (RBC) Count 3.34 mill/uL (4.20-5.40); White Blood Cell (WBC) Count 16.4 thou/uL (4.8-10.8)
[2021-04-09 08:05] LABS: Anisocytosis MODERATE=16-30 cells (100X) (0-5/hpf); Band 19 % (5-11); Eosinophils 2 % (0-10); Hypochromia MODERATE=16-30 cells (100X) (0-5/hpf); Lymphocytes 3 % (21-51); MDiff Complete? YES; Metamyelocyte 1 % (0-0); Monocytes 6 % (0-10); Neutrophil 69 % (42-75); Platelet Morphology Comment Appears Increased; Polychromasia MODERATE = 3-4 cells (100X) (0-2/hpf)
[2021-04-09] MEDS: Enoxaparin Sodium 40 MG/0.4 ML SYRINGE SC SCH (10:31)
[2021-04-09] MEDS: Zinc Sulfate 220 MG CAP PO SCH (10:32)
[2021-04-09] MEDS ORDERED: Fentanyl 100 MCG/2 ML VIAL ONE ×5 (11:33→15:10)
[2021-04-09] MEDS ORDERED: Midazolam HCl 2 mg/2 ml Vial ONE ×2 (11:33→12:12)
[2021-04-09] MEDS ORDERED: Lidocaine 1% (PF) 30 ML VIAL ONE (11:34)
[2021-04-09] MEDS ORDERED: Bupivacaine PF 0.5% 30 ML VIAL ONE (11:34)
[2021-04-09] MEDS ORDERED: Sodium Chloride 0.9% 10 ML ONE (11:56)
[2021-04-09] MEDS ORDERED: Rocuronium Bromide 10 MG/ML (10ML VIAL) ONE (12:33)
[2021-04-09] MEDS ORDERED: Ondansetron PF 4 MG/2 ML Vial ONE (12:33)
[2021-04-09] MEDS ORDERED: Succinylcholine 200 MG/10 ml SYRINGE FS ONE ×2 (12:33→13:58)
[2021-04-09] MEDS ORDERED: Lidocaine 1% PF 5 ML VIAL ONE (12:33)
[2021-04-09] MEDS ORDERED: PHENYLEPHRINE-NS 100 MCG/ML 10 ML SYRINGE ONE (12:33)
[2021-04-09] MEDS ORDERED: Glycopyrrolate 0.2 MG/ML 5 ML SYRINGE ONE (12:33)
[2021-04-09] MEDS ORDERED: PROPOFOL 200 MG/20 ML VIAL ONE (12:33)
[2021-04-09] MEDS ORDERED: SUGAMMADEX SODIUM 200 MG/2 ML VIAL ONE (13:58)
[2021-04-09] MEDS ORDERED: Ondansetron HCl/PF 4 MG/2 ML Vial IVP PRN (14:19)
[2021-04-09] MEDS ORDERED: Promethazine HCl 25 MG/ML VIAL IVPB PRN (14:19)
[2021-04-09] MEDS ORDERED: Promethazine HCl 25 MG/ML VIAL IM PRN ×2 (14:19→21:53)
[2021-04-09] MEDS: Albumin 25% 25 GM/100 ML BOT IVPB SCH ×2 (16:55→23:13)
[2021-04-09] MEDS: Lactated Ringer's 1,000 ML IV SCH (16:55)
[2021-04-09] MEDS ORDERED: diphenhydrAMINE 50 MG/ML VIAL IM PRN (21:53)
[2021-04-09] MEDS ORDERED: diphenhydrAMINE 25 MG CAP PO PRN (21:53)
[2021-04-09] MEDS ORDERED: diphenhydrAMINE 50 MG/ML VIAL IVP PRN (21:53)
[2021-04-09] MEDS ORDERED: Ondansetron PF 4 MG/2 ML Vial IVP PRN (21:53)
[2021-04-09] MEDS ORDERED: Naloxone HCl 0.4 mg/ml Vial IV PRN (21:53)
[2021-04-09] MEDS ORDERED: Zolpidem Tartrate 5 MG TAB PO PRN (21:53)
[2021-04-09] MEDS ORDERED: Communication Order-Pharmacy FS SCH (22:00)
[2021-04-09] MEDS ORDERED: Fentanyl 100 MCG/2 ML VIAL SLOW IVP SCH (22:15)
[2021-04-10] MEDS: fentaNYL Citrate/PF 2,000 MCG in Sodium Chloride 0.9% 60 ML IV PRN ×2 (00:36→22:22)
[2021-04-10] MEDS: Lactated Ringer's 1,000 ML IV SCH ×3 (03:55→21:00)
[2021-04-10] MEDS: Albumin 25% 25 GM/100 ML BOT IVPB SCH ×3 (05:17→18:19)
[2021-04-10] MEDS: Meropenem 1 GM in Sodium Chloride 0.9% 100 ML IVPB SCH ×3 (05:17→20:59)
[2021-04-10 05:50] LABS: #Lymphocytes 0.5 thou/uL (1.20-3.40); #Monocytes 0.5 thou/uL (0.11-0.59); #Neutrophils 13.7 thou/uL (1.40-6.50); %Eosinophils 0.1 % (0.0-10.0); %Lymphocytes 3.3 % (21.0-51.0); %Monocytes 3.4 % (0.0-10.0); %Neutrophils 93.1 % (42.0-75.0); Hemoglobin 10.2 g/dL (12.0-16.0); Mean Corpuscular HGB CONC 30.9 g/dL (32.0-36.0); Mean Corpuscular Hemoglobin 24.9 pg (27.0-31.0); Mean Corpuscular Volume 80.6 fL (78.0-98.0); Mean Platelet Volume 8.7 fL (7.4-10.4); Platelet Count 620 thou/uL (130-400); Red Blood Cell (RBC) Count 4.11 mill/uL (4.20-5.40); White Blood Cell (WBC) Count 14.8 thou/uL (4.8-10.8)
[2021-04-10 07:14] LABS: ALT (SGPT) 19 U/L (8-55); AST (SGOT) 20 U/L (5-34); Alkaline Phosphatase 130 U/L (40-110); Anion Gap 9 mmol/L (10-20); BUN (Urea Nitrogen) 19 mg/dL (9.8-20.1); Bilirubin, Total 0.5 mg/dL (0.2-1.2); Calc. Creatinine Clearance 154 mL/min (70-130); Calcium 7.7 mg/dL (7.8-10.44); Carbon Dioxide 24 mmol/L (22-29); Chloride 107 mmol/L (98-107); Globulin 2.1 g/dL (2.4-3.5); Glucose 121 mg/dL (70-105); Magnesium 1.9 mg/dL (1.6-2.6); Potassium 4.1 mmol/L (3.5-5.1); Protein, Total 4.1 g/dL (6.0-8.3); Sodium 136 mmol/L (136-145)
[2021-04-10] MEDS: Enoxaparin Sodium 40 MG/0.4 ML SYRINGE SC SCH (09:15)
[2021-04-10] MEDS: Multivitamins, Adult 10 ML, TRACE ELEMENT CONCENTRATE 1 ML in CLINIMIX E 5/20 2,000 ML IV SCH (15:01)
[2021-04-10] MEDS: Fat Emulsion 250 ML IVPB SCH (15:01)
[2021-04-11] MEDS: Meropenem 1 GM in Sodium Chloride 0.9% 100 ML IVPB SCH ×3 (05:20→21:06)
[2021-04-11] MEDS: Enoxaparin Sodium 40 MG/0.4 ML SYRINGE SC SCH (08:10)
[2021-04-11] MEDS ORDERED: Lactated Ringer's 1,000 ML IV SCH (11:05)
[2021-04-11] MEDS: Multivitamins, Adult 10 ML, TRACE ELEMENT CONCENTRATE 1 ML in CLINIMIX E 5/20 2,000 ML IV SCH (16:37)
[2021-04-11] MEDS: fentaNYL Citrate/PF 2,000 MCG in Sodium Chloride 0.9% 60 ML IV PRN (17:49)
[2021-04-12] MEDS: Meropenem 1 GM in Sodium Chloride 0.9% 100 ML IVPB SCH ×3 (05:49→22:21)
[2021-04-12] MEDS: Enoxaparin Sodium 40 MG/0.4 ML SYRINGE SC SCH (09:21)
[2021-04-12] MEDS: Multivitamins, Adult 10 ML, TRACE ELEMENT CONCENTRATE 1 ML in CLINIMIX E 5/20 2,000 ML IV SCH (14:15)
[2021-04-12] MEDS: fentaNYL Citrate/PF 2,000 MCG in Sodium Chloride 0.9% 60 ML IV PRN (14:15)
[2021-04-13] MEDS: Meropenem 1 GM in Sodium Chloride 0.9% 100 ML IVPB SCH ×3 (05:40→22:13)
[2021-04-13 06:28] LABS: ALT (SGPT) 80 U/L (8-55); AST (SGOT) 81 U/L (5-34); Albumin 2.2 g/dL (3.5-5.0); Alkaline Phosphatase 150 U/L (40-110); Anion Gap 10 mmol/L (10-20); BUN (Urea Nitrogen) 13 mg/dL (9.8-20.1); Bilirubin, Total 0.4 mg/dL (0.2-1.2); Calc. Creatinine Clearance 154 mL/min (70-130); Calcium 7.9 mg/dL (7.8-10.44); Carbon Dioxide 27 mmol/L (22-29); Chloride 101 mmol/L (98-107); Globulin 2.1 g/dL (2.4-3.5); Glucose 121 mg/dL (70-105); Magnesium 1.9 mg/dL (1.6-2.6); Potassium 3.7 mmol/L (3.5-5.1); Protein, Total 4.3 g/dL (6.0-8.3); Sodium 134 mmol/L (136-145)
[2021-04-13 06:31] LABS: #Eosinphils 0.1 thou/uL (0.0-0.7); #Lymphocytes 0.7 thou/uL (1.20-3.40); #Neutrophils 5.7 thou/uL (1.40-6.50); %Basophils 0.4 % (0.0-1.0); %Eosinophils 1.2 % (0.0-10.0); %Lymphocytes 9.3 % (21.0-51.0); %Monocytes 12.8 % (0.0-10.0); %Neutrophils 76.4 % (42.0-75.0); Anisocytosis SLIGHT = 6-15 cells (100X) (0-5/hpf); Hemoglobin 8.2 g/dL (12.0-16.0); Hypochromia MODERATE=16-30 cells (100X) (0-5/hpf); MDiff Complete? YES; Mean Corpuscular HGB CONC 31.7 g/dL (32.0-36.0); Mean Corpuscular Hemoglobin 25.5 pg (27.0-31.0); Mean Corpuscular Volume 80.5 fL (78.0-98.0); Mean Platelet Volume 8.6 fL (7.4-10.4); Platelet Count 487 thou/uL (130-400); Platelet Morphology Comment Appears Increased; Poikilocytosis SLIGHT = 6-15 cells (100X) (0-5/hpf); RBC Distribution Width 27.6 % (11.5-14.5); Red Blood Cell (RBC) Count 3.22 mill/uL (4.20-5.40); Target Cells SLIGHT = 2-5 cells (100X) (0-1/hpf); Tear Drops SLIGHT = 2-5 cells (100X) (0-1/hpf); White Blood Cell (WBC) Count 7.5 thou/uL (4.8-10.8)
[2021-04-13] MEDS: Enoxaparin Sodium 40 MG/0.4 ML SYRINGE SC SCH (09:02)
[2021-04-13] MEDS: Multivitamins, Adult 10 ML, TRACE ELEMENT CONCENTRATE 1 ML in CLINIMIX E 5/20 2,000 ML IV SCH (14:33)
[2021-04-13] MEDS: Fat Emulsion 250 ML IVPB SCH (14:34)
[2021-04-14] MEDS: fentaNYL Citrate/PF 2,000 MCG in Sodium Chloride 0.9% 60 ML IV PRN (00:36)
[2021-04-14] MEDS: Meropenem 1 GM in Sodium Chloride 0.9% 100 ML IVPB SCH ×3 (06:36→22:25)
[2021-04-14] MEDS: Enoxaparin Sodium 40 MG/0.4 ML SYRINGE SC SCH (09:09)
[2021-04-14] MEDS: Multivitamins, Adult 10 ML, TRACE ELEMENT CONCENTRATE 1 ML in CLINIMIX E 5/20 2,000 ML IV SCH (14:42)
[2021-04-14] MEDS: Pantoprazole 40 MG VIAL IVP SCH (20:14)
[2021-04-15] MEDS: Meropenem 1 GM in Sodium Chloride 0.9% 100 ML IVPB SCH ×3 (06:05→21:33)
[2021-04-15 06:33] LABS: Hemoglobin 8.5 g/dL (12.0-16.0); Mean Corpuscular HGB CONC 30.8 g/dL (32.0-36.0); Mean Corpuscular Hemoglobin 24.7 pg (27.0-31.0); Mean Corpuscular Volume 80.3 fL (78.0-98.0); Mean Platelet Volume 8.7 fL (7.4-10.4); Platelet Count 542 thou/uL (130-400); Red Blood Cell (RBC) Count 3.42 mill/uL (4.20-5.40); White Blood Cell (WBC) Count 9.5 thou/uL (4.8-10.8)
[2021-04-15 07:00] LABS: ALT (SGPT) 216 U/L (8-55); AST (SGOT) 113 U/L (5-34); Albumin 2.3 g/dL (3.5-5.0); Alkaline Phosphatase 292 U/L (40-110); Anion Gap 8 mmol/L (10-20); BUN (Urea Nitrogen) 13 mg/dL (9.8-20.1); Bilirubin, Total 0.4 mg/dL (0.2-1.2); Calc. Creatinine Clearance 154 mL/min (70-130); Calcium 8.2 mg/dL (7.8-10.44); Carbon Dioxide 25 mmol/L (22-29); Chloride 108 mmol/L (98-107); Globulin 2.6 g/dL (2.4-3.5); Glucose 122 mg/dL (70-105); Magnesium 2.1 mg/dL (1.6-2.6); Potassium 3.4 mmol/L (3.5-5.1); Protein, Total 4.9 g/dL (6.0-8.3); Sodium 138 mmol/L (136-145)
[2021-04-15] MEDS: Enoxaparin Sodium 40 MG/0.4 ML SYRINGE SC SCH (08:36)
[2021-04-15] MEDS: Pantoprazole 40 MG VIAL IVP SCH ×2 (08:37→20:26)
[2021-04-15 09:07] LABS: #Eosinphils 0.2 thou/uL (0.0-0.7); #Lymphocytes 0.9 thou/uL (1.20-3.40); #Monocytes 1.1 thou/uL (0.11-0.59); #Neutrophils 7.3 thou/uL (1.40-6.50); %Basophils 0.4 % (0.0-1.0); %Eosinophils 2.4 % (0.0-10.0); %Lymphocytes 9.8 % (21.0-51.0); %Monocytes 11.1 % (0.0-10.0); %Neutrophils 76.3 % (42.0-75.0); Anisocytosis MODERATE=16-30 cells (100X) (0-5/hpf); Hypochromia SLIGHT = 6-15 cells (100X) (0-5/hpf); MDiff Complete? YES; Polychromasia SLIGHT = 2-3 cells (100X) (0-2/hpf); Target Cells SLIGHT = 2-5 cells (100X) (0-1/hpf)
[2021-04-15] MEDS: Multivitamins, Adult 10 ML, TRACE ELEMENT CONCENTRATE 1 ML in CLINIMIX E 5/20 2,000 ML IV SCH (14:06)
[2021-04-15] MEDS: Fat Emulsion 250 ML IVPB SCH (14:06)
[2021-04-15] MEDS ORDERED: Sodium Chloride 0.9% 10 ML ONE (14:31)
[2021-04-15] MEDS ORDERED: Xylocaine 1% w/ Epi 1:100K 10 ML VIAL ONE (16:09)
[2021-04-15] MEDS ORDERED: Bupivacaine 0.25% HCL 30 ML VIAL ONE (16:09)
[2021-04-15] MEDS ORDERED: PROPOFOL 20 ML ONE (16:10)
[2021-04-15] MEDS ORDERED: HYDROmorphone 2 MG/ML VIAL ONE (16:10)
[2021-04-15] MEDS ORDERED: Fentanyl 100 MCG/2 ML VIAL ONE (16:38)
[2021-04-15] MEDS ORDERED: Acetaminophen 500 MG TAB PO PRN (17:17)
[2021-04-15] MEDS: HYDROcodone/Acetaminophen 5/325 mg Tablet PO PRN (20:26)
[2021-04-15] MEDS: traMADol HCl 50 MG TAB PO PRN (22:38)
[2021-04-16] MEDS: HYDROcodone/Acetaminophen 5/325 mg Tablet PO PRN ×3 (00:46→12:39)
[2021-04-16] MEDS: Meropenem 1 GM in Sodium Chloride 0.9% 100 ML IVPB SCH (06:05)
[2021-04-16] MEDS: Ascorbic Acid 500 mg Chewable Tablet PO SCH (09:40)
[2021-04-16] MEDS: Polyethylene Glycol 3350 17 GM Packet PO SCH (09:40)
[2021-04-16] MEDS: Enoxaparin Sodium 40 MG/0.4 ML SYRINGE SC SCH (09:40)
[2021-04-16] MEDS: traMADol HCl 50 MG TAB PO PRN (15:47)
[2021-04-17] MEDS: HYDROcodone/Acetaminophen 5/325 mg Tablet PO PRN (05:56)
[2021-04-17 07:33] VITALS: BP 139/80; TEMP 97.9
[2021-04-17] MEDS: Polyethylene Glycol 3350 17 GM Packet PO SCH (09:06)
[2021-04-17] MEDS: Ascorbic Acid 500 mg Chewable Tablet PO SCH (09:06)
[2021-04-17] MEDS: Enoxaparin Sodium 40 MG/0.4 ML SYRINGE SC SCH (09:09)
== END 2021-04-17 12:50 | disposition home or self-care (01) | DRG 856 ==
LOC: ERS 10:53 → SURG A 19:39
PROVIDERS: ADMIT Specialist; ATTEND Specialist
PROC: 0DB80ZZ Excision of Small Intestine, Open Approach (ICD-10-PCS; principal; 2021-04-02)
PROC: 0W9G0ZZ Drainage of Peritoneal Cavity, Open Approach (ICD-10-PCS; 2021-04-02)
PROC: 0JQ80ZZ Repair Abdomen Subcutaneous Tissue and Fascia, Open Approach (ICD-10-PCS; 2021-04-02)
PROC: 02HV33Z Insertion of Infusion Device into Superior Vena Cava, Percutaneous Approach (ICD-10-PCS; 2021-04-04)
PROC: 0JB80ZZ Excision of Abdomen Subcutaneous Tissue and Fascia, Open Approach (ICD-10-PCS; 2021-04-07)
PROC: 0W9G00Z Drainage of Peritoneal Cavity with Drainage Device, Open Approach (ICD-10-PCS; 2021-04-09)
PROC: 0DN80ZZ Release Small Intestine, Open Approach (ICD-10-PCS; 2021-04-09)
PROC: 0JH60WZ Insertion of Totally Implantable Vascular Access Device into Chest Subcutaneous Tissue and Fascia, Open Approach (ICD-10-PCS; 2021-04-15)
PROC: 02HV33Z Insertion of Infusion Device into Superior Vena Cava, Percutaneous Approach (ICD-10-PCS; 2021-04-15)
PROC: B5181ZA Fluoroscopy of Superior Vena Cava using Low Osmolar Contrast, Guidance (ICD-10-PCS; 2021-04-15)
DX: T81.40XA Infection following a procedure, unspecified, initial encounter (principal); K65.1 Peritoneal abscess; U07.1 COVID-19; T81.31XA Disruption of external operation (surgical) wound, not elsewhere classified, initial encounter; C17.9 Malignant neoplasm of small intestine, unspecified; D62 Acute posthemorrhagic anemia; E46 Unspecified protein-calorie malnutrition; C78.6 Secondary malignant neoplasm of retroperitoneum and peritoneum; K56.7 Ileus, unspecified; C20 Malignant neoplasm of rectum; Y83.8 Other surgical procedures as the cause of abnormal reaction of the patient, or of later complication, without mention of misadventure at the time of the procedure; Z96.649 Presence of unspecified artificial hip joint; Z90.49 Acquired absence of other specified parts of digestive tract; Z88.0 Allergy status to penicillin; Z92.21 Personal history of antineoplastic chemotherapy; Z92.3 Personal history of irradiation; Z68.24 Body mass index [BMI] 24.0-24.9, adult
CPT/HCPCS: 36415; 36416; 36430; 36569; 71045; 80048; 80053; 83605; 83735; 84100; 85025; 86850; 86900; 86901; 87040; 87070; 87076; 87077; 87186; 87205; 88307; 99285; C1751; C1788; C9113; J0171; J0690; J1100; J1170; J1642; J1644; J1650; J1885; J2001; J2185; J2250; J2270; J2405; J2704; J3010; J3480; J3490; J7120; P9016; P9047; Q9967; S0020; S0028; U0002

== ENCOUNTER 2021-05-05 07:35 | Outpatient (CLI) | payer OTHER | END 2021-05-05 07:36 | disposition home or self-care (01) | LOC: CT 07:35 | PROVIDERS: ATTEND Specialist | DX: C19 Malignant neoplasm of rectosigmoid junction (principal); K65.1 Peritoneal abscess | CPT/HCPCS: 74177 ==

== ENCOUNTER 2021-05-07 13:53 | Emergency (ER) | payer OTHER, SELFPAY ==
[2021-05-07 14:44] LABS: Hemoglobin 8.4 g/dL (12.0-16.0); Mean Corpuscular HGB CONC 32.1 g/dL (32.0-36.0); Mean Corpuscular Hemoglobin 25.8 pg (27.0-31.0); Mean Corpuscular Volume 80.3 fL (78.0-98.0); Mean Platelet Volume 7.7 fL (7.4-10.4); Platelet Count 744 thou/uL (130-400); RBC Distribution Width 24.9 % (11.5-14.5); Red Blood Cell (RBC) Count 3.25 mill/uL (4.20-5.40); White Blood Cell (WBC) Count 19.3 thou/uL (4.8-10.8)
[2021-05-07 15:08] LABS: Anisocytosis MODERATE=16-30 cells (100X) (0-5/hpf); Band 11 % (5-11); Eosinophils 2 % (0-10); Hypochromia SLIGHT = 6-15 cells (100X) (0-5/hpf); Lymphocytes 5 % (21-51); MDiff Complete? YES; Monocytes 5 % (0-10); Neutrophil 77 % (42-75); Ovalocytes SLIGHT = 2-5 cells (100X) (0-1/hpf); Platelet Morphology Comment Appears Increased; Polychromasia SLIGHT = 2-3 cells (100X) (0-2/hpf); Target Cells SLIGHT = 2-5 cells (100X) (0-1/hpf)
== END 2021-05-07 17:30 | disposition home or self-care (01) ==
LOC: ERS 13:53
DX: D50.9 Iron deficiency anemia, unspecified (principal); Z85.038 Personal history of other malignant neoplasm of large intestine
CPT/HCPCS: 36415; 36430; 85025; 86850; 86900; 86901; 99284; J1642; P9016

== ENCOUNTER 2021-09-26 12:51 | Inpatient (IN) | payer OTHER, SELFPAY ==
[2021-09-26 13:13] LABS: #Basophils 0.1 thou/uL (0.0-0.2); #Eosinphils 0.6 thou/uL (0.0-0.7); #Lymphocytes 1.2 thou/uL (1.20-3.40); #Monocytes 1.3 thou/uL (0.11-0.59); #Neutrophils 14.6 thou/uL (1.40-6.50); %Basophils 0.4 % (0.0-1.0); %Eosinophils 3.2 % (0.0-10.0); %Lymphocytes 6.6 % (21.0-51.0); %Monocytes 7.2 % (0.0-10.0); %Neutrophils 82.6 % (42.0-75.0); Hemoglobin 10.4 g/dL (12.0-16.0); Mean Corpuscular HGB CONC 32.8 g/dL (32.0-36.0); Mean Corpuscular Hemoglobin 27.1 pg (27.0-31.0); Mean Corpuscular Volume 82.6 fL (78.0-98.0); Mean Platelet Volume 6.3 fL (7.4-10.4); Platelet Count 662 thou/uL (130-400); RBC Distribution Width 18.1 % (11.5-14.5); Red Blood Cell (RBC) Count 3.85 mill/uL (4.20-5.40); White Blood Cell (WBC) Count 17.7 thou/uL (4.8-10.8)
[2021-09-26 13:38] LABS: ALT (SGPT) 51 U/L (8-55); AST (SGOT) 30 U/L (5-34); Albumin 3.3 g/dL (3.5-5.0); Alkaline Phosphatase 96 U/L (40-110); Anion Gap 16 mmol/L (10-20); BUN (Urea Nitrogen) 16 mg/dL (9.8-20.1); Bilirubin, Total 0.3 mg/dL (0.2-1.2); Calc. Creatinine Clearance 0 mL/min (70-130); Carbon Dioxide 28 mmol/L (22-29); Chloride 101 mmol/L (98-107); Estimated GFR 100; Globulin 3.9 g/dL (2.4-3.5); Glucose 96 mg/dL (70-105); Lipase 11 U/L (8-78); Potassium 3.9 mmol/L (3.5-5.1); Protein, Total 7.2 g/dL (6.0-8.3); Sodium 141 mmol/L (136-145)
[2021-09-26 14:25] LABS: Bilirubin Negative (Negative); Blood, Urine Negative (Negative); Glucose, Urine (Dipstick) Normal (Negative); Ketone, Urine Negative (Negative); Leukocyte Negative Leu/uL (Negative); Nitrite Negative (Negative); Protein, Urine (Dipstick) 20 mg/dL (Neg-Trace); Specific Gravity, Urine 1.024 (1.002-1.036); pH, Urine 6.5 (5.0-9.0)
[2021-09-26 14:26] LABS: Clarity Hazy (Clear)
[2021-09-26] MEDS ORDERED: Ketorolac Tromethamine 30 MG/ML VIAL ONE (14:33)
[2021-09-26] MEDS ORDERED: Piperacillin/Tazobactam 4.5 GM VIAL ONE (14:33)
[2021-09-26] MEDS ORDERED: GASTROGRAFIN 30 ML BOT ONE (15:25)
[2021-09-26] MEDS ORDERED: Iopamidol-370 76% 500 ML 1 ML ONE (15:25)
[2021-09-26] MEDS ORDERED: Vancomycin 1 GM/200 ML BAG ONE (15:47)
[2021-09-26] MEDS ORDERED: Acetaminophen 325 MG TAB PO PRN (16:58)
[2021-09-26] MEDS ORDERED: HYDROcodone/Acetaminophen 5/325 mg Tablet PO PRN (16:58)
[2021-09-26] MEDS ORDERED: Ondansetron PF 4 MG/2 ML Vial IVP PRN (16:58)
[2021-09-26] MEDS ORDERED: Senokot S 8.6-50 MG TAB PO PRN (16:58)
[2021-09-26] MEDS: Sodium Chloride 0.9% 1,000 ML IV SCH (19:53)
[2021-09-26] MEDS: Piperacillin/Tazobactam 3.375 GM in Sodium Chloride 0.9% 100 ML IVPB SCH (19:53)
[2021-09-26] MEDS ORDERED: Piperacillin/Tazobactam 4.5 GM in Sodium Chloride 0.9% 100 ML IVPB SCH (22:00)
[2021-09-26 22:17] VITALS: BMI 21.6
[2021-09-27] MEDS: Ketorolac Tromethamine 30 MG/ML VIAL IVP PRN ×3 (03:42→17:52)
[2021-09-27] MEDS: Piperacillin/Tazobactam 3.375 GM in Sodium Chloride 0.9% 100 ML IVPB SCH ×3 (03:42→20:28)
[2021-09-27] MEDS: Vancomycin 1 GM in Premix Bag 1 BAG IVPB SCH ×2 (03:43→17:05)
[2021-09-27] MEDS: Sodium Chloride 0.9% 1,000 ML IV SCH ×3 (03:59→23:18)
[2021-09-27 05:49] LABS: #Eosinphils 0.4 thou/uL (0.0-0.7); #Lymphocytes 1.2 thou/uL (1.20-3.40); #Monocytes 1.2 thou/uL (0.11-0.59); #Neutrophils 12.1 thou/uL (1.40-6.50); %Basophils 0.1 % (0.0-1.0); %Eosinophils 2.8 % (0.0-10.0); %Lymphocytes 8.3 % (21.0-51.0); %Monocytes 7.8 % (0.0-10.0); Mean Corpuscular HGB CONC 31.5 g/dL (32.0-36.0); Mean Corpuscular Hemoglobin 26.5 pg (27.0-31.0); Mean Corpuscular Volume 84.3 fL (78.0-98.0); Mean Platelet Volume 6.7 fL (7.4-10.4); Platelet Count 559 thou/uL (130-400); RBC Distribution Width 18.3 % (11.5-14.5); Red Blood Cell (RBC) Count 3.41 mill/uL (4.20-5.40)
[2021-09-27 06:11] LABS: Anion Gap 13 mmol/L (10-20); BUN (Urea Nitrogen) 9 mg/dL (9.8-20.1); Calc. Creatinine Clearance 96 mL/min (70-130); Calcium 9.3 mg/dL (7.8-10.44); Carbon Dioxide 24 mmol/L (22-29); Chloride 106 mmol/L (98-107); Estimated GFR 104; Glucose 106 mg/dL (70-105); Potassium 4.2 mmol/L (3.5-5.1); Sodium 139 mmol/L (136-145)
[2021-09-27] MEDS: Enoxaparin Sodium 40 MG/0.4 ML SYRINGE SC SCH (08:35)
[2021-09-28] MEDS: Ketorolac Tromethamine 30 MG/ML VIAL IVP PRN ×3 (00:28→18:20)
[2021-09-28 03:11] LABS: #Basophils 0.1 thou/uL (0.0-0.2); #Eosinphils 0.5 thou/uL (0.0-0.7); #Lymphocytes 1.1 thou/uL (1.20-3.40); #Monocytes 1.2 thou/uL (0.11-0.59); #Neutrophils 9.2 thou/uL (1.40-6.50); %Basophils 0.7 % (0.0-1.0); %Lymphocytes 9.2 % (21.0-51.0); %Monocytes 10.2 % (0.0-10.0); Hemoglobin 9.5 g/dL (12.0-16.0); Mean Corpuscular HGB CONC 31.9 g/dL (32.0-36.0); Mean Corpuscular Hemoglobin 26.8 pg (27.0-31.0); Mean Corpuscular Volume 84.1 fL (78.0-98.0); Platelet Count 550 thou/uL (130-400); RBC Distribution Width 17.9 % (11.5-14.5); Red Blood Cell (RBC) Count 3.54 mill/uL (4.20-5.40); White Blood Cell (WBC) Count 12.1 thou/uL (4.8-10.8)
[2021-09-28 03:30] LABS: Vancomycin, Trough 12.5 ug/mL
[2021-09-28 03:32] LABS: ALT (SGPT) 39 U/L (8-55); AST (SGOT) 21 U/L (5-34); Albumin 2.8 g/dL (3.5-5.0); Alkaline Phosphatase 79 U/L (40-110); Anion Gap 13 mmol/L (10-20); BUN (Urea Nitrogen) 9 mg/dL (9.8-20.1); Bilirubin, Total 0.2 mg/dL (0.2-1.2); Calc. Creatinine Clearance 100 mL/min (70-130); Calcium 9.2 mg/dL (7.8-10.44); Carbon Dioxide 23 mmol/L (22-29); Chloride 110 mmol/L (98-107); Estimated GFR 105; Globulin 3.2 g/dL (2.4-3.5); Glucose 99 mg/dL (70-105); Sodium 142 mmol/L (136-145)
[2021-09-28] MEDS: Piperacillin/Tazobactam 3.375 GM in Sodium Chloride 0.9% 100 ML IVPB SCH ×3 (04:44→20:05)
[2021-09-28] MEDS: Vancomycin 1 GM in Premix Bag 1 BAG IVPB SCH (04:44)
[2021-09-28 08:27] LABS: Hemoglobin A1c 4.8 % (4.0-6.0)
[2021-09-28] MEDS: Sodium Chloride 0.9% 1,000 ML IV SCH (08:46)
[2021-09-28] MEDS: Enoxaparin Sodium 40 MG/0.4 ML SYRINGE SC SCH (08:47)
[2021-09-29] MEDS: Ketorolac Tromethamine 30 MG/ML VIAL IVP PRN ×3 (02:39→14:58)
[2021-09-29] MEDS: Piperacillin/Tazobactam 3.375 GM in Sodium Chloride 0.9% 100 ML IVPB SCH (02:41)
[2021-09-29 05:31] LABS: #Eosinphils 0.6 thou/uL (0.0-0.7); #Lymphocytes 1.3 thou/uL (1.20-3.40); #Monocytes 1.3 thou/uL (0.11-0.59); #Neutrophils 8.4 thou/uL (1.40-6.50); %Basophils 0.2 % (0.0-1.0); %Eosinophils 5.2 % (0.0-10.0); %Lymphocytes 10.9 % (21.0-51.0); %Neutrophils 72.7 % (42.0-75.0); Hemoglobin 9.1 g/dL (12.0-16.0); Mean Corpuscular HGB CONC 31.2 g/dL (32.0-36.0); Mean Corpuscular Hemoglobin 25.7 pg (27.0-31.0); Mean Corpuscular Volume 82.3 fL (78.0-98.0); Mean Platelet Volume 6.2 fL (7.4-10.4); Platelet Count 578 thou/uL (130-400); RBC Distribution Width 18.1 % (11.5-14.5); Red Blood Cell (RBC) Count 3.54 mill/uL (4.20-5.40); White Blood Cell (WBC) Count 11.6 thou/uL (4.8-10.8)
[2021-09-29 05:54] LABS: ALT (SGPT) 32 U/L (8-55); AST (SGOT) 21 U/L (5-34); Albumin 2.8 g/dL (3.5-5.0); Alkaline Phosphatase 75 U/L (40-110); Anion Gap 12 mmol/L (10-20); BUN (Urea Nitrogen) 13 mg/dL (9.8-20.1); Bilirubin, Direct 0.2 mg/dL (0.1-0.3); Bilirubin, Total 0.3 mg/dL (0.2-1.2); CRP (Inflammatory) 16.16 mg/dL (= or < 0.5); Calc. Creatinine Clearance 89 mL/min (70-130); Calcium 9.2 mg/dL (7.8-10.44); Carbon Dioxide 25 mmol/L (22-29); Cardiac Risk 3.3 (Less than 4.5); Chloride 109 mmol/L (98-107); Cholesterol 108 mg/dl (< 200 Desired); Estimated GFR 102; Glucose 91 mg/dL (70-105); HDL Cholesterol 33 mg/dL (>60 Neg Risk); LDL Cholesterol, Calculated 65 mg/dL; Magnesium 2.4 mg/dL (1.6-2.6); Potassium 4.2 mmol/L (3.5-5.1); Protein, Total 6.3 g/dL (6.0-8.3); Sodium 142 mmol/L (136-145); Triglycerides 51 mg/dL (Less than 150)
[2021-09-29] MEDS: Enoxaparin Sodium 40 MG/0.4 ML SYRINGE SC SCH (08:47)
[2021-09-29] MEDS ORDERED: traMADol HCl 50 MG TAB PO PRN (08:56)
[2021-09-29] MEDS ORDERED: Amoxicillin/Potassium Clav 500 MG TAB PO SCH (09:00)
[2021-09-29 15:24] VITALS: BP 115/70; TEMP 98.6
== END 2021-09-29 16:30 | disposition home or self-care (01) | DRG 372 ==
LOC: ERS 12:51 → SURG A 17:01 → OBSVTOIN 17:05
PROVIDERS: ADMIT Family Medicine; ATTEND Family Medicine
PROC: 2W0 Placement, Anatomical Regions, Change (ICD-10-PCS; principal; 2021-09-26)
DX: K65.1 Peritoneal abscess (principal); C19 Malignant neoplasm of rectosigmoid junction; L03.311 Cellulitis of abdominal wall; Z20.822 Contact with and (suspected) exposure to COVID-19; Z96.642 Presence of left artificial hip joint; D63.0 Anemia in neoplastic disease; D50.9 Iron deficiency anemia, unspecified; Z88.0 Allergy status to penicillin
CPT/HCPCS: 10060; 36415; 74177; 80048; 80053; 80061; 80076; 80202; 81003; 83036; 83605; 83690; 83735; 84443; 85025; 86140; 87040; 87086; 96365; 96367; 96375; 97139; J1642; J1650; J1885; J2543; J3370; J3490; J7050; Q9963; Q9967; U0003; U0005

== ENCOUNTER 2021-10-08 08:37 | Outpatient (CLI) | payer OTHER ==
[~2021-10-08 08:37] MED LIST changes: -Heparin 1,000 UNITS/ML VIAL ONE; +Iopamidol 370 76% 100 ML VIAL ONE
== END 2021-10-08 08:38 | disposition home or self-care (01) ==
LOC: BICCT 08:37
PROVIDERS: ATTEND Specialist
DX: K65.1 Peritoneal abscess (principal); R59.0 Localized enlarged lymph nodes; E27.8 Other specified disorders of adrenal gland
CPT/HCPCS: 74177; Q9967

== ENCOUNTER 2022-04-20 14:18 | Emergency (ER) | payer SELFPAY ==
[2022-04-20 16:54] LABS: #Eosinphils 0.3 thou/uL (0.0-0.7); #Lymphocytes 1.2 thou/uL (1.20-3.40); #Monocytes 0.4 thou/uL (0.11-0.59); #Neutrophils 4.1 thou/uL (1.40-6.50); %Basophils 0.7 % (0.0-1.0); %Lymphocytes 19.9 % (21.0-51.0); %Monocytes 6.4 % (0.0-10.0); Hemoglobin 10.6 g/dL (12.0-16.0); Mean Corpuscular HGB CONC 33.2 g/dL (32.0-36.0); Mean Corpuscular Hemoglobin 27.2 pg (27.0-31.0); Mean Corpuscular Volume 81.9 fl (78.0-98.0); Mean Platelet Volume 6.4 fL (7.4-10.4); Platelet Count 464 10x3/uL (130-400); RBC Distribution Width 17.4 % (11.5-14.5); White Blood Cell (WBC) Count 6.1 10x3/uL (4.8-10.8)
[2022-04-20] MEDS ORDERED: Rivaroxaban 15 MG TAB PO SCH (17:00)
[2022-04-20 17:11] LABS: Prothrombin Time 14.1 sec (12.0-14.7)
[2022-04-20 17:12] LABS: PTT 29.6 sec (22.9-36.1)
[2022-04-20 17:14] LABS: ALT (SGPT) 24 U/L (8-55); AST (SGOT) 24 U/L (5-34); Albumin 3.6 g/dL (3.5-5.0); Alkaline Phosphatase 69 U/L (40-110); Anion Gap 15 mmol/L (10-20); BUN (Urea Nitrogen) 13 mg/dL (9.8-20.1); Bilirubin, Total 0.2 mg/dL (0.2-1.2); Calc. Creatinine Clearance 0 mL/min (70-130); Calcium 9.4 mg/dL (7.8-10.44); Carbon Dioxide 21 mmol/L (22-29); Chloride 102 mmol/L (98-107); Estimated GFR 103; Globulin 3.8 g/dL (2.4-3.5); Glucose 91 mg/dL (70-105); Potassium 3.2 mmol/L (3.5-5.1); Protein, Total 7.4 g/dL (6.0-8.3); Sodium 135 mmol/L (136-145)
[2022-04-20 17:21] LABS: D-Dimer Test 4.89 *mcg/mL (0.27-0.43)
[2022-04-21 12:33] LABS: Factor VIII Test 259.3 % ACTIVE (56-157)
[2022-04-21 13:31] LABS: Protein C Activity 77 % (78-152)
[2022-04-24 18:01] LABS: Cardiolipin IgA Ab 5.5 APL-U/mL (<14 Negative); Cardiolipin IgG Ab 3.2 GPL-U/mL (<10 Negative); Cardiolipin IgM Ab Less than 0.9 MPL-U/mL (<10 Negative); EliA APS New Method **** NEW METHOD ****
[2022-04-28 10:16] LABS: HEX PHOS LA Tube 1 45.1 SEC; HEX PHOS LA Tube 2 35.4 SEC; Hexagonal Phospholipid Neut 9.8 SEC (0-8.0)
[2022-04-28 17:14] LABS: Activated Protein C Resistance 1.8 ratio (.); Factor V Mutation (Leiden) See below: (.)
== END 2022-04-20 17:11 | disposition home or self-care (01) ==
LOC: ERS 14:18
DX: I82.401 Acute embolism and thrombosis of unspecified deep veins of right lower extremity (principal)
CPT/HCPCS: 36415; 80053; 83090; 85025; 85240; 85300; 85303; 85305; 85307; 85379; 85598; 85610; 85730; 86147

== ENCOUNTER 2022-06-24 22:42 | Inpatient (IN) | payer SELFPAY ==
[2022-06-24] MEDS ORDERED: Acetaminophen 500 MG TAB ONE (23:29)
[2022-06-24] MEDS ORDERED: Ondansetron PF 4 MG/2 ML Vial ONE (23:29)
[2022-06-24] MEDS ORDERED: Morphine 4 MG/ML VIAL ONE (23:29)
[2022-06-24] MEDS ORDERED: Ketorolac Tromethamine 30 MG/ML VIAL ONE (23:29)
[2022-06-25 00:02] LABS: Hemoglobin 5.2 g/dL (12.0-16.0); Mean Corpuscular HGB CONC 28.9 g/dL (32.0-36.0); Mean Corpuscular Hemoglobin 20.3 pg (27.0-31.0); Mean Corpuscular Volume 70.3 fl (78.0-98.0); Mean Platelet Volume 6.8 fL (7.4-10.4); Platelet Count 983 10x3/uL (130-400); Red Blood Cell (RBC) Count 2.57 mill/uL (4.20-5.40)
[2022-06-25 00:14] LABS: Bilirubin Negative (Negative); Blood, Urine 3+ (Negative); Clarity Clear (Clear); Glucose, Urine (Dipstick) Normal (Negative); Ketone, Urine Negative (Negative); Leukocyte 75 Leu/uL (Negative); Nitrite Negative (Negative); Protein, Urine (Dipstick) 20 mg/dL (Neg-Trace); RBC/HPF 0-3 HPF (0-3); Specific Gravity, Urine 1.014 (1.002-1.036); Squamous Epithelial 0-3 HPF (0-3); Urobilinogen Normal mg/dL (Less than 2)
[2022-06-25 00:15] LABS: ALT (SGPT) 38 U/L (8-55); AST (SGOT) 30 U/L (5-34); Albumin 2.8 g/dL (3.5-5.0); Alkaline Phosphatase 93 U/L (40-110); Anion Gap 15 mmol/L (10-20); BUN (Urea Nitrogen) 23 mg/dL (9.8-20.1); Bilirubin, Total Less than 0.2 mg/dL (0.2-1.2); Calc. Creatinine Clearance 0 mL/min (70-130); Calcium 8.8 mg/dL (7.8-10.44); Carbon Dioxide 20 mmol/L (22-29); Chloride 102 mmol/L (98-107); Estimated GFR 93; Globulin 4.4 g/dL (2.4-3.5); Glucose 91 mg/dL (70-105); Potassium 4.3 mmol/L (3.5-5.1); Protein, Total 7.2 g/dL (6.0-8.3); Sodium 133 mmol/L (136-145)
[2022-06-25 00:48] LABS: Bacteria/HPF 1+ HPF (None Seen)
[2022-06-25 01:13] LABS: Eosinophils 4 % (0-10); Hypochromia SLIGHT = 6-15 cells (100X) (0-5/hpf); Large Platelets SLIGHT; Lymphocytes 10 % (21-51); MDiff Complete? YES; Microcytosis SLIGHT = 6-15 cells (100X) (0-5/hpf); Monocytes 5 % (0-10); Neutrophil 81 % (42-75); Nucleated RBC 3 % (0); Platelet Morphology Comment Appears Increased; Polychromasia MODERATE = 3-4 cells (100X) (0-2/hpf); Schistocytes SLIGHT = 2-5 cells (100X) (0-1/hpf); Target Cells SLIGHT = 2-5 cells (100X) (0-1/hpf); White Blood Cell (WBC) Count 12.7 10x3/uL (4.8-10.8)
[2022-06-25] MEDS ORDERED: Acetaminophen 325 MG TAB PO PRN ×2 (01:31→15:47)
[2022-06-25] MEDS ORDERED: Ondansetron PF 4 MG/2 ML Vial IVP PRN (01:31)
[2022-06-25] MEDS ORDERED: Senokot S 8.6-50 MG TAB PO PRN ×2 (01:31→08:45)
[2022-06-25] MEDS ORDERED: Ondansetron ODT 4 MG TAB PO PRN (01:31)
[2022-06-25 01:54] LABS: SARS-CoV-2 NAA Rapid Test Not Detected (NotDetected)
[2022-06-25] MEDS ORDERED: cefTRIAXone\\ROCEPHIN 1 GM in Sodium Chloride 0.9% 100 ML IVPB SCH ×2 (02:00→07:30)
[2022-06-25 02:09] VITALS: BMI 22.7
[2022-06-25 07:57] LABS: #Eosinphils 0.6 thou/uL (0.0-0.7); #Lymphocytes 1.5 thou/uL (1.20-3.40); #Monocytes 1.2 thou/uL (0.11-0.59); #Neutrophils 8.4 thou/uL (1.40-6.50); %Basophils 0.3 % (0.0-1.0); %Eosinophils 5.2 % (0.0-10.0); %Lymphocytes 12.5 % (21.0-51.0); Hemoglobin 7.1 g/dL (12.0-16.0); Mean Corpuscular HGB CONC 30.2 g/dL (32.0-36.0); Mean Corpuscular Hemoglobin 23.6 pg (27.0-31.0); Mean Corpuscular Volume 78.2 fl (78.0-98.0); Mean Platelet Volume 6.7 fL (7.4-10.4); Platelet Count 787 10x3/uL (130-400); RBC Distribution Width 22.5 % (11.5-14.5); Red Blood Cell (RBC) Count 3.02 mill/uL (4.20-5.40); White Blood Cell (WBC) Count 11.7 10x3/uL (4.8-10.8)
[2022-06-25 08:12] LABS: Anion Gap 12 mmol/L (10-20); BUN (Urea Nitrogen) 19 mg/dL (9.8-20.1); Calc. Creatinine Clearance 92 mL/min (70-130); Calcium 8.3 mg/dL (7.8-10.44); Carbon Dioxide 19 mmol/L (22-29); Chloride 107 mmol/L (98-107); Estimated GFR 102; Glucose 87 mg/dL (70-105); Potassium 4.1 mmol/L (3.5-5.1); Sodium 134 mmol/L (136-145)
[2022-06-25 08:40] LABS: Anisocytosis MODERATE=16-30 cells (100X) (0-5/hpf); Hypochromia SLIGHT = 6-15 cells (100X) (0-5/hpf); MDiff Complete? YES; Platelet Morphology Comment Appears Increased; Polychromasia MODERATE = 3-4 cells (100X) (0-2/hpf); Schistocytes SLIGHT = 2-5 cells (100X) (0-1/hpf); Target Cells SLIGHT = 2-5 cells (100X) (0-1/hpf); Tear Drops SLIGHT = 2-5 cells (100X) (0-1/hpf)
[2022-06-25] MEDS ORDERED: Iron, Sodium Ferric Gluconate 250 MG in Sodium Chloride 0.9% 250 ML 250 ML IVPB SCH (09:00)
[2022-06-25] MEDS: Famotidine/PF 20 mg/2ml Vial SLOW IVP SCH ×2 (09:22→20:55)
[2022-06-25] MEDS: Famotidine 20 MG TAB PO SCH ×2 (09:25→21:00)
[2022-06-25] MEDS: Morphine 2 MG/ML VIAL SLOW IVP PRN ×3 (09:25→20:53)
[2022-06-25] MEDS: Ascorbic Acid 500 mg Chewable Tablet PO SCH (09:27)
[2022-06-25] MEDS: Zinc Sulfate 220 MG CAP PO SCH (09:27)
[2022-06-25 15:35] LABS: #Eosinphils 0.5 thou/uL (0.0-0.7); #Lymphocytes 1.3 thou/uL (1.20-3.40); #Monocytes 0.2 thou/uL (0.11-0.59); #Neutrophils 15.6 thou/uL (1.40-6.50); %Basophils 0.2 % (0.0-1.0); %Eosinophils 2.8 % (0.0-10.0); %Lymphocytes 7.6 % (21.0-51.0); %Neutrophils 88.5 % (42.0-75.0); Hemoglobin 8.5 g/dL (12.0-16.0); Mean Corpuscular HGB CONC 31.5 g/dL (32.0-36.0); Mean Corpuscular Hemoglobin 24.6 pg (27.0-31.0); Mean Corpuscular Volume 77.9 fl (78.0-98.0); Mean Platelet Volume 7.2 fL (7.4-10.4); Platelet Count 891 10x3/uL (130-400); RBC Distribution Width 22.5 % (11.5-14.5); Red Blood Cell (RBC) Count 3.45 mill/uL (4.20-5.40); White Blood Cell (WBC) Count 17.6 10x3/uL (4.8-10.8)
[2022-06-25] MEDS: Vancomycin 1 GM in Premix Bag 1 BAG IVPB SCH (15:52)
[2022-06-25] MEDS ORDERED: Sodium Chloride 0.9% 500 ML IV SCH (16:00)
[2022-06-25] MEDS ORDERED: Acetaminophen 650 MG Suppository PR SCH (16:00)
[2022-06-25] MEDS: Sodium Chloride 0.9% 1,000 ML IV SCH ×2 (16:53→21:01)
[2022-06-25] MEDS: Cefepime 2 GM in Sodium Chloride 0.9% 100 ML IVPB SCH (17:13)
[2022-06-25] MEDS ORDERED: VANCOMYCIN 750 MG/250 ML BAG 750 MG in Sodium Chloride 0.9% 250 ML 250 ML IVPB SCH (21:00)
[2022-06-25] MEDS ORDERED: Iopamidol 15 ML ONE (22:44)
[2022-06-25] MEDS: metroNIDAZOLE 500 MG in Premix Bag 1 BAG IVPB SCH (23:18)
[2022-06-26] MEDS ORDERED: Ondansetron HCl/PF 4 MG/2 ML Vial IVP PRN (00:29)
[2022-06-26] MEDS ORDERED: Promethazine HCl 25 MG/ML VIAL IM PRN (00:29)
[2022-06-26] MEDS ORDERED: fentaNYL 50 mcg/mL 1 mL Vial ONE (00:48)
[2022-06-26] MEDS: HYDROcodone/Acetaminophen 5/325 mg Tablet PO PRN ×2 (02:50→20:03)
[2022-06-26] MEDS: Sodium Chloride 0.9% 1,000 ML IV SCH ×3 (03:45→22:39)
[2022-06-26 05:18] LABS: #Eosinphils 0.1 thou/uL (0.0-0.7); #Lymphocytes 0.5 thou/uL (1.20-3.40); #Monocytes 0.2 thou/uL (0.11-0.59); #Neutrophils 15.1 thou/uL (1.40-6.50); %Basophils 0.2 % (0.0-1.0); %Eosinophils 0.4 % (0.0-10.0); %Lymphocytes 2.9 % (21.0-51.0); %Monocytes 1.5 % (0.0-10.0); Hemoglobin 7.1 g/dL (12.0-16.0); Mean Corpuscular HGB CONC 32.1 g/dL (32.0-36.0); Mean Corpuscular Hemoglobin 24.9 pg (27.0-31.0); Mean Corpuscular Volume 77.8 fl (78.0-98.0); Mean Platelet Volume 7.1 fL (7.4-10.4); Platelet Count 684 10x3/uL (130-400); RBC Distribution Width 22.8 % (11.5-14.5); Red Blood Cell (RBC) Count 2.83 mill/uL (4.20-5.40); White Blood Cell (WBC) Count 15.8 10x3/uL (4.8-10.8)
[2022-06-26] MEDS: Vancomycin 1 GM in Premix Bag 1 BAG IVPB SCH (05:22)
[2022-06-26 05:25] LABS: Phosphorus 3.7 mg/dL (2.3-4.7)
[2022-06-26] MEDS: metroNIDAZOLE 500 MG in Premix Bag 1 BAG IVPB SCH (05:26)
[2022-06-26 05:33] LABS: ALT (SGPT) 21 U/L (8-55); AST (SGOT) 12 U/L (5-34); Albumin 2.4 g/dL (3.5-5.0); Alkaline Phosphatase 74 U/L (40-110); Anion Gap 13 mmol/L (10-20); BUN (Urea Nitrogen) 12 mg/dL (9.8-20.1); Bilirubin, Total 0.2 mg/dL (0.2-1.2); Calc. Creatinine Clearance 90 mL/min (70-130); Calcium 8.3 mg/dL (7.8-10.44); Carbon Dioxide 17 mmol/L (22-29); Chloride 111 mmol/L (98-107); Estimated GFR 101; Globulin 3.6 g/dL (2.4-3.5); Glucose 98 mg/dL (70-105); Potassium 3.8 mmol/L (3.5-5.1); Sodium 137 mmol/L (136-145)
[2022-06-26] MEDS: Cefepime 2 GM in Sodium Chloride 0.9% 100 ML IVPB SCH ×2 (06:28→16:25)
[2022-06-26 08:54] LABS: Iron 13 ug/dL (50-170); Iron Binding Capacity, Total 130 mcg/dL (265-497)
[2022-06-26] MEDS: Ascorbic Acid 500 mg Chewable Tablet PO SCH (09:37)
[2022-06-26] MEDS: Famotidine 20 MG TAB PO SCH (09:38)
[2022-06-26] MEDS: Zinc Sulfate 220 MG CAP PO SCH (09:38)
[2022-06-26] MEDS: Famotidine/PF 20 mg/2ml Vial SLOW IVP SCH (12:03)
[2022-06-26] MEDS ORDERED: Pantoprazole 40 MG VIAL IVP SCH (12:53)
[2022-06-26] MEDS ORDERED: Rivaroxaban 15 MG TAB PO SCH (17:00)
[2022-06-26] MEDS: Morphine 2 MG/ML VIAL SLOW IVP PRN (22:32)
[2022-06-26] MEDS ORDERED: Ondansetron PF 4 MG/2 ML Vial ONE (23:49)
[2022-06-26] MEDS ORDERED: PROPOFOL 200 MG/20 ML VIAL ONE (23:49)
[2022-06-26] MEDS ORDERED: Dexamethasone 20 MG/5 ML VIAL ONE (23:49)
[2022-06-26] MEDS ORDERED: Lidocaine 1% PF 5 ML VIAL ONE (23:49)
[2022-06-26] MEDS ORDERED: ePHEDrine Sulfate 50 MG/10 ML VIAL ONE (23:49)
[2022-06-27 05:14] LABS: Hemoglobin 8.2 g/dL (12.0-16.0); Mean Corpuscular HGB CONC 29.3 g/dL (32.0-36.0); Mean Corpuscular Hemoglobin 24.4 pg (27.0-31.0); Mean Corpuscular Volume 83.4 fl (78.0-98.0); Mean Platelet Volume 8.6 fL (7.4-10.4); Platelet Count 482 10x3/uL (130-400); RBC Distribution Width 24.6 % (11.5-14.5); Red Blood Cell (RBC) Count 3.36 mill/uL (4.20-5.40)
[2022-06-27] MEDS: Cefepime 2 GM in Sodium Chloride 0.9% 100 ML IVPB SCH (05:27)
[2022-06-27 05:56] LABS: Eosinophils 2 % (0-10); Hypochromia SLIGHT = 6-15 cells (100X) (0-5/hpf); Lymphocytes 9 % (21-51); MDiff Complete? YES; Monocytes 3 % (0-10); Neutrophil 86 % (42-75); Nucleated RBC 1 % (0); Platelet Morphology Comment Appears Increased; Polychromasia MODERATE = 3-4 cells (100X) (0-2/hpf); Target Cells MODERATE= 6-15 cells (100X) (0-1/hpf); White Blood Cell (WBC) Count 9.9 10x3/uL (4.8-10.8)
[2022-06-27 06:09] LABS: Vancomycin, Trough 6.5 ug/mL
[2022-06-27 06:14] LABS: ALT (SGPT) 20 U/L (8-55); AST (SGOT) 55 U/L (5-34); Albumin 1.9 g/dL (3.5-5.0); Alkaline Phosphatase 69 U/L (40-110); BUN (Urea Nitrogen) 17 mg/dL (9.8-20.1); Bilirubin, Total Less than 0.2 mg/dL (0.2-1.2); Calc. Creatinine Clearance 77 mL/min (70-130); Carbon Dioxide 13 mmol/L (22-29); Chloride 113 mmol/L (98-107); Estimated GFR 93; Globulin 3.8 g/dL (2.4-3.5); Glucose 93 mg/dL (70-105); Potassium 4.5 mmol/L (3.5-5.1); Protein, Total 5.7 g/dL (6.0-8.3); Sodium 136 mmol/L (136-145)
[2022-06-27 06:28] LABS: Anion Gap 15 mmol/L (10-20)
[2022-06-27] MEDS: Zinc Sulfate 220 MG CAP PO SCH (08:57)
[2022-06-27] MEDS: Ascorbic Acid 500 mg Chewable Tablet PO SCH (08:57)
[2022-06-27] MEDS ORDERED: Cyclobenzaprine 10 MG TAB PO SCH (09:00)
[2022-06-27] MEDS: Morphine 2 MG/ML VIAL SLOW IVP PRN (11:18)
[2022-06-27] MEDS: Sodium Chloride 0.9% 1,000 ML IV SCH (12:49)
[2022-06-27 16:07] VITALS: BP 113/72; TEMP 98.4
== END 2022-06-27 17:16 | disposition home or self-care (01) | DRG 854 ==
LOC: ERS 22:42 → MSONC 06-25 00:47 → 2NO 06-25 17:47
PROVIDERS: ADMIT Internal Medicine; ATTEND Internal Medicine
PROC: 3E03329 Introduction of Other Anti-infective into Peripheral Vein, Percutaneous Approach (ICD-10-PCS; 2022-06-25)
PROC: 30233N1 Transfusion of Nonautologous Red Blood Cells into Peripheral Vein, Percutaneous Approach (ICD-10-PCS; 2022-06-25)
PROC: 0T768DZ Dilation of Right Ureter with Intraluminal Device, Via Natural or Artificial Opening Endoscopic (ICD-10-PCS; principal; 2022-06-26)
PROC: BT1D1ZZ Fluoroscopy of Right Kidney, Ureter and Bladder using Low Osmolar Contrast (ICD-10-PCS; 2022-06-26)
DX: A41.9 Sepsis, unspecified organism (principal); C18.7 Malignant neoplasm of sigmoid colon; N13.6 Pyonephrosis; C77.2 Secondary and unspecified malignant neoplasm of intra-abdominal lymph nodes; E87.1 Hypo-osmolality and hyponatremia; Z20.822 Contact with and (suspected) exposure to COVID-19; Z96.642 Presence of left artificial hip joint; D50.9 Iron deficiency anemia, unspecified; D75.839 Thrombocytosis, unspecified; Z86.718 Personal history of other venous thrombosis and embolism; Z79.01 Long term (current) use of anticoagulants; Z91.040 Latex allergy status; Z79.899 Other long term (current) drug therapy; Z82.49 Family history of ischemic heart disease and other diseases of the circulatory system; Z90.49 Acquired absence of other specified parts of digestive tract
CPT/HCPCS: 36415; 36430; 72170; 72192; 74420; 76770; 80048; 80053; 80202; 81003; 81015; 82728; 83540; 83550; 83605; 83735; 84100; 85025; 86140; 86850; 86900; 86901; 87040; 87081; 93005; 93010; 96374; 96375; C2617; C9113; J0692; J0696; J1100; J1642; J1650; J1885; J2270; J2272; J2405; J2704; J2916; J3010; J3370-JW; J3490; J7030; J7050; P9016; Q9967; S0028; U0002

== ENCOUNTER 2022-07-11 11:41 | Inpatient (IN) | payer SELFPAY ==
[2022-07-11 12:24] LABS: Bacteria/HPF None Seen HPF (None Seen); Bilirubin Negative (Negative); Blood, Urine 3+ (Negative); Clarity Clear (Clear); Glucose, Urine (Dipstick) Normal (Negative); Ketone, Urine Negative (Negative); Leukocyte 75 Leu/uL (Negative); Nitrite Negative (Negative); Protein, Urine (Dipstick) 70 mg/dL (Neg-Trace); RBC/HPF Greater than 50 HPF (0-3); Specific Gravity, Urine 1.017 (1.002-1.036); Squamous Epithelial 0-3 HPF (0-3); Urobilinogen Normal mg/dL (Less than 2); pH, Urine 6.5 (5.0-9.0)
[2022-07-11 13:35] LABS: #Basophils 0.1 thou/uL (0.0-0.2); #Eosinphils 0.1 thou/uL (0.0-0.7); #Lymphocytes 1.1 thou/uL (1.20-3.40); #Monocytes 1.5 thou/uL (0.11-0.59); #Neutrophils 13.7 thou/uL (1.40-6.50); %Basophils 0.3 % (0.0-1.0); %Eosinophils 0.5 % (0.0-10.0); %Lymphocytes 6.9 % (21.0-51.0); %Neutrophils 83.3 % (42.0-75.0); Hemoglobin 7.6 g/dL (12.0-16.0); Mean Corpuscular HGB CONC 31.3 g/dL (32.0-36.0); Mean Corpuscular Hemoglobin 23.5 pg (27.0-31.0); Mean Corpuscular Volume 75.3 fl (78.0-98.0); Mean Platelet Volume 6.4 fL (7.4-10.4); Platelet Count 958 10x3/uL (130-400); RBC Distribution Width 22.3 % (11.5-14.5); White Blood Cell (WBC) Count 16.4 10x3/uL (4.8-10.8)
[2022-07-11] MEDS ORDERED: Ketorolac Tromethamine 30 MG/ML VIAL ONE (13:42)
[2022-07-11] MEDS ORDERED: Piperacillin/Tazobactam 3.375 GM VIAL ONE (13:42)
[2022-07-11] MEDS ORDERED: Acetaminophen 500 MG TAB ONE (13:42)
[2022-07-11] MEDS ORDERED: Morphine 4 MG/ML VIAL ONE (13:42)
[2022-07-11 13:52] LABS: INR-International Normal Ratio 1.3; PTT 38.2 sec (22.9-36.1)
[2022-07-11 13:59] LABS: ALT (SGPT) 22 U/L (8-55); AST (SGOT) 24 U/L (5-34); Albumin 2.8 g/dL (3.5-5.0); Alkaline Phosphatase 97 U/L (40-110); Anion Gap 16 mmol/L (10-20); BUN (Urea Nitrogen) 15 mg/dL (9.8-20.1); Bilirubin, Total 0.2 mg/dL (0.2-1.2); Calc. Creatinine Clearance 0 mL/min (70-130); Calcium 8.8 mg/dL (7.8-10.44); Carbon Dioxide 20 mmol/L (22-29); Chloride 100 mmol/L (98-107); Estimated GFR 101; Globulin 4.5 g/dL (2.4-3.5); Glucose 98 mg/dL (70-105); Potassium 3.8 mmol/L (3.5-5.1); Protein, Total 7.3 g/dL (6.0-8.3); Sodium 132 mmol/L (136-145)
[2022-07-11] MEDS ORDERED: Vancomycin 1 GM/200 ML (FROZEN) BAG ONE (14:43)
[2022-07-11] MEDS ORDERED: Senokot S 8.6-50 MG TAB PO PRN (16:28)
[2022-07-11] MEDS ORDERED: Sodium Chloride 0.9% 1,000 ML IV SCH ×3 (16:30→17:00)
[2022-07-11 16:31] VITALS: BMI 21.8
[2022-07-11] MEDS: Sodium Chloride 0.9% 1,000 ML IV SCH ×2 (18:19→23:52)
[2022-07-11 21:39] LABS: Hemoglobin 6.6 g/dL (12.0-16.0)
[2022-07-11] MEDS: Acetaminophen 325 MG TAB PO PRN (23:49)
[2022-07-12] MEDS: Vancomycin 1 GM in Premix Bag 1 BAG IVPB SCH ×2 (01:29→14:45)
[2022-07-12] MEDS: Cefepime 2 GM in Sodium Chloride 0.9% 100 ML IVPB SCH ×2 (03:03→16:06)
[2022-07-12 04:01] LABS: ALT (SGPT) 17 U/L (8-55); AST (SGOT) 12 U/L (5-34); Albumin 2.3 g/dL (3.5-5.0); Alkaline Phosphatase 78 U/L (40-110); Anion Gap 13 mmol/L (10-20); BUN (Urea Nitrogen) 11 mg/dL (9.8-20.1); Bilirubin, Total Less than 0.2 mg/dL (0.2-1.2); Calc. Creatinine Clearance 101 mL/min (70-130); Calcium 8.1 mg/dL (7.8-10.44); Carbon Dioxide 19 mmol/L (22-29); Chloride 107 mmol/L (98-107); Estimated GFR 105; Globulin 3.6 g/dL (2.4-3.5); Glucose 113 mg/dL (70-105); Potassium 2.6 mmol/L (3.5-5.1); Protein, Total 5.9 g/dL (6.0-8.3); Sodium 136 mmol/L (136-145)
[2022-07-12 04:13] LABS: #Basophils 0.1 thou/uL (0.0-0.2); #Eosinphils 0.2 thou/uL (0.0-0.7); #Lymphocytes 1.2 thou/uL (1.20-3.40); #Monocytes 1.4 thou/uL (0.11-0.59); #Neutrophils 11.8 thou/uL (1.40-6.50); %Basophils 0.3 % (0.0-1.0); %Eosinophils 1.5 % (0.0-10.0); %Lymphocytes 7.9 % (21.0-51.0); %Monocytes 9.4 % (0.0-10.0); %Neutrophils 80.9 % (42.0-75.0); Hemoglobin 6.4 g/dL (12.0-16.0); Mean Corpuscular HGB CONC 31.5 g/dL (32.0-36.0); Mean Corpuscular Hemoglobin 23.8 pg (27.0-31.0); Mean Corpuscular Volume 75.7 fl (78.0-98.0); Mean Platelet Volume 6.5 fL (7.4-10.4); Platelet Count 738 10x3/uL (130-400); White Blood Cell (WBC) Count 14.6 10x3/uL (4.8-10.8)
[2022-07-12] MEDS ORDERED: Electrolyte Replacement Protocol 1 EACH FS SCH (04:15)
[2022-07-12 04:18] LABS: INR-International Normal Ratio 1.4; PTT 44.5 sec (22.9-36.1); Prothrombin Time 17.6 sec (12.0-14.7)
[2022-07-12 04:26] LABS: Magnesium 1.7 mg/dL (1.6-2.6)
[2022-07-12] MEDS: Potassium Chloride 20 MEQ TAB PO SCH ×2 (04:35→08:42)
[2022-07-12] MEDS: Sodium Chloride 0.9% 1,000 ML IV SCH ×2 (04:36→16:51)
[2022-07-12] MEDS ORDERED: Magnesium 2 GM/50 ML(in water) 2 GM in Premix Bag 1 BAG IVPB SCH ×2 (05:00→08:00)
[2022-07-12] MEDS ORDERED: Iopamidol 370 76% 100 ML VIAL ONE (08:32)
[2022-07-12] MEDS ORDERED: Lidocaine 1% (PF) 30 ML VIAL ONE (13:45)
[2022-07-12] MEDS ORDERED: Heparin 10,000 UNITS/ 10 ML VIAL ONE (13:45)
[2022-07-12] MEDS: Acetaminophen 325 MG TAB PO PRN ×2 (14:45→20:55)
[2022-07-12] MEDS ORDERED: HYDROcodone/Acetaminophen 5/325 mg Tablet PO PRN (15:15)
[2022-07-12] MEDS: Albumin 25% 25 GM/100 ML BOT IVPB SCH ×2 (16:06→21:00)
[2022-07-12 18:49] LABS: #Eosinphils 0.2 thou/uL (0.0-0.7); #Lymphocytes 1.3 thou/uL (1.20-3.40); #Monocytes 1.1 thou/uL (0.11-0.59); #Neutrophils 11.5 thou/uL (1.40-6.50); %Basophils 0.2 % (0.0-1.0); %Eosinophils 1.6 % (0.0-10.0); %Lymphocytes 8.9 % (21.0-51.0); %Monocytes 8.1 % (0.0-10.0); %Neutrophils 81.2 % (42.0-75.0); Hemoglobin 7.5 g/dL (12.0-16.0); Mean Corpuscular HGB CONC 31.9 g/dL (32.0-36.0); Mean Corpuscular Hemoglobin 25.1 pg (27.0-31.0); Mean Corpuscular Volume 78.7 fl (78.0-98.0); Mean Platelet Volume 6.6 fL (7.4-10.4); Platelet Count 659 10x3/uL (130-400); RBC Distribution Width 21.4 % (11.5-14.5); Red Blood Cell (RBC) Count 2.99 mill/uL (4.20-5.40); White Blood Cell (WBC) Count 14.1 10x3/uL (4.8-10.8)
[2022-07-12 18:53] LABS: Anion Gap 12 mmol/L (10-20); BUN (Urea Nitrogen) 10 mg/dL (9.8-20.1); Calc. Creatinine Clearance 94 mL/min (70-130); Calcium 8.4 mg/dL (7.8-10.44); Carbon Dioxide 17 mmol/L (22-29); Chloride 108 mmol/L (98-107); Estimated GFR 104; Glucose 107 mg/dL (70-105); Potassium 3.4 mmol/L (3.5-5.1); Sodium 134 mmol/L (136-145)
[2022-07-12] MEDS ORDERED: Potassium Chloride 20 MEQ TAB PO SCH (22:30)
[2022-07-13] MEDS ORDERED: Vancomycin 1 GM in Premix Bag 1 BAG IVPB SCH (01:30)
[2022-07-13 01:51] LABS: Vancomycin, Trough 9.1 ug/mL
[2022-07-13] MEDS: Vancomycin 1.5 GRAM/300 ML BAG 1.5 GM in Premix Bag 1 BAG IVPB SCH ×2 (02:08→13:59)
[2022-07-13] MEDS: Acetaminophen 325 MG TAB PO PRN ×2 (02:13→16:22)
[2022-07-13] MEDS: Cefepime 2 GM in Sodium Chloride 0.9% 100 ML IVPB SCH ×2 (03:29→14:00)
[2022-07-13] MEDS: Albumin 25% 25 GM/100 ML BOT IVPB SCH ×2 (03:35→09:18)
[2022-07-13] MEDS: Sodium Chloride 0.9% 1,000 ML IV SCH (07:36)
[2022-07-13 08:02] LABS: Anion Gap 14 mmol/L (10-20); BUN (Urea Nitrogen) 10 mg/dL (9.8-20.1); Calc. Creatinine Clearance 103 mL/min (70-130); Calcium 8.8 mg/dL (7.8-10.44); Carbon Dioxide 14 mmol/L (22-29); Chloride 112 mmol/L (98-107); Estimated GFR 106; Glucose 83 mg/dL (70-105); Magnesium 2.2 mg/dL (1.6-2.6); Sodium 136 mmol/L (136-145)
[2022-07-13 08:04] LABS: Hemoglobin 7.4 g/dL (12.0-16.0); Mean Corpuscular HGB CONC 30.4 g/dL (32.0-36.0); Mean Corpuscular Hemoglobin 23.9 pg (27.0-31.0); Mean Corpuscular Volume 78.7 fl (78.0-98.0); Mean Platelet Volume 6.9 fL (7.4-10.4); Platelet Count 654 10x3/uL (130-400); RBC Distribution Width 21.8 % (11.5-14.5); Red Blood Cell (RBC) Count 3.09 mill/uL (4.20-5.40); White Blood Cell (WBC) Count 15.4 10x3/uL (4.8-10.8)
[2022-07-13 08:31] LABS: #Eosinphils 0.3 thou/uL (0.0-0.7); #Lymphocytes 1.3 thou/uL (1.20-3.40); #Monocytes 1.2 thou/uL (0.11-0.59); #Neutrophils 12.6 thou/uL (1.40-6.50); %Basophils 0.2 % (0.0-1.0); %Eosinophils 2.2 % (0.0-10.0); %Lymphocytes 8.2 % (21.0-51.0); %Monocytes 7.7 % (0.0-10.0); %Neutrophils 81.8 % (42.0-75.0); Band 5 % (5-11); Eosinophils 2 % (0-10); Hypochromia MODERATE=16-30 cells (100X) (0-5/hpf); Lymphocytes 8 % (21-51); MDiff Complete? YES; Microcytosis SLIGHT = 6-15 cells (100X) (0-5/hpf); Monocytes 2 % (0-10); Neutrophil 82 % (42-75); Platelet Morphology Comment Appears Increased; Polychromasia SLIGHT = 2-3 cells (100X) (0-2/hpf); Reactive Lymphocytes 1 % (0-10)
[2022-07-13] MEDS ORDERED: Iopamidol-370 76% 500 ML MDV (1 ML CHARGE) ONE (08:44)
[2022-07-13] MEDS ORDERED: Loperamide HCl 2 MG CAP PO SCH (12:15)
[2022-07-13 12:38] LABS: Iron Less than 8 ug/dL (50-170); Iron Binding Capacity, Total 75 mcg/dL (265-497)
[2022-07-13] MEDS: Loperamide HCl 2 MG CAP PO PRN (18:06)
[2022-07-13] MEDS: Morphine 2 MG/ML VIAL SLOW IVP PRN (21:05)
[2022-07-14] MEDS: Vancomycin 1.5 GRAM/300 ML BAG 1.5 GM in Premix Bag 1 BAG IVPB SCH ×2 (01:38→14:46)
[2022-07-14] MEDS: Cefepime 2 GM in Sodium Chloride 0.9% 100 ML IVPB SCH ×2 (03:39→14:03)
[2022-07-14 06:59] LABS: Hemoglobin 6.9 g/dL (12.0-16.0); Mean Corpuscular HGB CONC 32.4 g/dL (32.0-36.0); Mean Corpuscular Hemoglobin 24.5 pg (27.0-31.0); Mean Corpuscular Volume 75.4 fl (78.0-98.0); Mean Platelet Volume 6.6 fL (7.4-10.4); Platelet Count 703 10x3/uL (130-400); RBC Distribution Width 21.9 % (11.5-14.5); Red Blood Cell (RBC) Count 2.81 mill/uL (4.20-5.40); White Blood Cell (WBC) Count 17.1 10x3/uL (4.8-10.8)
[2022-07-14 07:12] LABS: Anion Gap 14 mmol/L (10-20); BUN (Urea Nitrogen) 9 mg/dL (9.8-20.1); Calc. Creatinine Clearance 103 mL/min (70-130); Calcium 8.6 mg/dL (7.8-10.44); Carbon Dioxide 16 mmol/L (22-29); Chloride 109 mmol/L (98-107); Estimated GFR 106; Glucose 99 mg/dL (70-105); Potassium 2.7 mmol/L (3.5-5.1); Sodium 136 mmol/L (136-145)
[2022-07-14 07:40] LABS: #Basophils 0.1 thou/uL (0.0-0.2); #Eosinphils 0.2 thou/uL (0.0-0.7); #Monocytes 1.3 thou/uL (0.11-0.59); #Neutrophils 14.5 thou/uL (1.40-6.50); %Basophils 0.3 % (0.0-1.0); %Eosinophils 1.5 % (0.0-10.0); %Lymphocytes 5.9 % (21.0-51.0); %Monocytes 7.6 % (0.0-10.0); %Neutrophils 84.8 % (42.0-75.0); Anisocytosis MODERATE=16-30 cells (100X) (0-5/hpf); Band 7 % (5-11); Hypochromia SLIGHT = 6-15 cells (100X) (0-5/hpf); Lymphocytes 7 % (21-51); MDiff Complete? YES; Microcytosis SLIGHT = 6-15 cells (100X) (0-5/hpf); Monocytes 3 % (0-10); Neutrophil 81 % (42-75); Platelet Morphology Comment Appears Increased; Polychromasia SLIGHT = 2-3 cells (100X) (0-2/hpf); Reactive Lymphocytes 2 % (0-10)
[2022-07-14] MEDS: Potassium Chloride 20 MEQ TAB PO SCH ×2 (08:00→12:02)
[2022-07-14] MEDS: Loperamide HCl 2 MG CAP PO PRN ×2 (08:01→12:02)
[2022-07-14] MEDS ORDERED: Meropenem 1 GM in Sodium Chloride 0.9% 100 ML IVPB SCH ×2 (17:00→22:00)
[2022-07-14] MEDS: Morphine 2 MG/ML VIAL SLOW IVP PRN (17:49)
[2022-07-14] MEDS: Acetaminophen 325 MG TAB PO PRN (18:35)
[2022-07-14] MEDS: Morphine ER 15 MG TAB PO SCH (21:00)
[2022-07-15 00:43] LABS: Vancomycin, Trough 16.5 ug/mL
[2022-07-15] MEDS: Meropenem 1 GM in Sodium Chloride 0.9% 100 ML IVPB SCH ×2 (03:39→12:41)
[2022-07-15 07:53] LABS: #Eosinphils 0.3 thou/uL (0.0-0.7); #Lymphocytes 1.1 thou/uL (1.20-3.40); #Monocytes 1.4 thou/uL (0.11-0.59); #Neutrophils 11.3 thou/uL (1.40-6.50); %Basophils 0.1 % (0.0-1.0); %Lymphocytes 7.7 % (21.0-51.0); %Monocytes 9.8 % (0.0-10.0); %Neutrophils 80.4 % (42.0-75.0); Hemoglobin 6.7 g/dL (12.0-16.0); Mean Corpuscular HGB CONC 31.6 g/dL (32.0-36.0); Mean Corpuscular Hemoglobin 24.4 pg (27.0-31.0); Mean Platelet Volume 6.6 fL (7.4-10.4); Platelet Count 707 10x3/uL (130-400); RBC Distribution Width 22.1 % (11.5-14.5); Red Blood Cell (RBC) Count 2.73 mill/uL (4.20-5.40)
[2022-07-15 08:04] LABS: Anion Gap 13 mmol/L (10-20); BUN (Urea Nitrogen) 9 mg/dL (9.8-20.1); Calc. Creatinine Clearance 109 mL/min (70-130); Calcium 8.4 mg/dL (7.8-10.44); Carbon Dioxide 19 mmol/L (22-29); Chloride 108 mmol/L (98-107); Estimated GFR 107; Glucose 84 mg/dL (70-105); Potassium 3.5 mmol/L (3.5-5.1); Sodium 136 mmol/L (136-145)
[2022-07-15] MEDS ORDERED: Potassium Chloride 20 MEQ TAB PO SCH (08:30)
[2022-07-15 08:35] LABS: Hypochromia SLIGHT = 6-15 cells (100X) (0-5/hpf); MDiff Complete? YES; Microcytosis SLIGHT = 6-15 cells (100X) (0-5/hpf); Polychromasia SLIGHT = 2-3 cells (100X) (0-2/hpf)
[2022-07-15 08:38] LABS: Platelet Morphology Comment Appears Increased
[2022-07-15] MEDS: Morphine ER 15 MG TAB PO SCH ×2 (08:55→20:21)
[2022-07-15] MEDS: metroNIDAZOLE 500 MG TAB PO SCH ×2 (15:38→20:21)
[2022-07-15] MEDS: Morphine 2 MG/ML VIAL SLOW IVP PRN (15:39)
[2022-07-15] MEDS ORDERED: Calcium Carbonate 500 MG ChewTAB PO PRN (16:20)
[2022-07-16] MEDS: Morphine 2 MG/ML VIAL SLOW IVP PRN (00:01)
[2022-07-16 07:30] LABS: #Basophils 0.1 thou/uL (0.0-0.2); #Eosinphils 0.6 thou/uL (0.0-0.7); #Lymphocytes 0.7 thou/uL (1.20-3.40); #Monocytes 1.6 thou/uL (0.11-0.59); #Neutrophils 13.9 thou/uL (1.40-6.50); %Basophils 0.7 % (0.0-1.0); %Eosinophils 3.7 % (0.0-10.0); %Lymphocytes 4.1 % (21.0-51.0); %Monocytes 9.4 % (0.0-10.0); Hemoglobin 7.9 g/dL (12.0-16.0); Mean Corpuscular HGB CONC 31.7 g/dL (32.0-36.0); Mean Corpuscular Volume 78.8 fl (78.0-98.0); Mean Platelet Volume 6.8 fL (7.4-10.4); Platelet Count 670 10x3/uL (130-400); RBC Distribution Width 22.2 % (11.5-14.5); Red Blood Cell (RBC) Count 3.16 mill/uL (4.20-5.40); White Blood Cell (WBC) Count 16.9 10x3/uL (4.8-10.8)
[2022-07-16 07:50] LABS: Anion Gap 13 mmol/L (10-20); BUN (Urea Nitrogen) 8 mg/dL (9.8-20.1); Calc. Creatinine Clearance 105 mL/min (70-130); Calcium 8.6 mg/dL (7.8-10.44); Carbon Dioxide 21 mmol/L (22-29); Chloride 104 mmol/L (98-107); Estimated GFR 106; Glucose 89 mg/dL (70-105); Potassium 3.6 mmol/L (3.5-5.1); Sodium 134 mmol/L (136-145)
[2022-07-16] MEDS: metroNIDAZOLE 500 MG TAB PO SCH (08:36)
[2022-07-16] MEDS: Morphine ER 15 MG TAB PO SCH (08:37)
[2022-07-16 11:47] VITALS: BP 109/71; TEMP 99.1
== END 2022-07-16 14:45 | disposition home or self-care (01) | DRG 871 ==
LOC: ERS 11:41 → T4-B 14:40
PROVIDERS: ADMIT Family Medicine; ATTEND Family Medicine
PROC: 3E03329 Introduction of Other Anti-infective into Peripheral Vein, Percutaneous Approach (ICD-10-PCS; principal; 2022-07-11)
PROC: 30233N1 Transfusion of Nonautologous Red Blood Cells into Peripheral Vein, Percutaneous Approach (ICD-10-PCS; 2022-07-12)
PROC: 06H03DZ Insertion of Intraluminal Device into Inferior Vena Cava, Percutaneous Approach (ICD-10-PCS; 2022-07-12)
DX: A41.9 Sepsis, unspecified organism (principal); K65.1 Peritoneal abscess; I82.411 Acute embolism and thrombosis of right femoral vein; E87.1 Hypo-osmolality and hyponatremia; C18.9 Malignant neoplasm of colon, unspecified; C78.4 Secondary malignant neoplasm of small intestine; N39.0 Urinary tract infection, site not specified; K63.2 Fistula of intestine; Z66 Do not resuscitate; Z96.641 Presence of right artificial hip joint; D50.9 Iron deficiency anemia, unspecified; D64.81 Anemia due to antineoplastic chemotherapy; E87.6 Hypokalemia; T45.1X5A Adverse effect of antineoplastic and immunosuppressive drugs, initial encounter; Z79.01 Long term (current) use of anticoagulants
CPT/HCPCS: 36415; 36430; 37191; 71045; 74177; 80048; 80053; 80202; 81003; 81015; 82728; 83540; 83550; 83605; 83735; 85025; 85610; 85730; 86140; 86850; 86900; 86901; 87040; 87086; 87324; 87449; 87493; 93005; 96365; 96367; 96372; 96375; C1769; C1880; J0692; J1642; J1644; J1650; J1885; J2001; J2185; J2270; J2272; J2543; J3370; J3370-JW; J3475; J3490; J7050; P9016; P9047; Q9967

== ENCOUNTER 2022-10-06 16:42 | Inpatient (IN) | payer OTHER, SELFPAY ==
[~2022-10-06 16:42] MED LIST changes: -Iopamidol 370 76% 100 ML VIAL ONE; +Iopamidol-370 76% 500 ML MDV (1 ML CHARGE) ONE
[2022-10-06] MEDS ORDERED: Morphine 4 MG/ML VIAL ONE (18:30)
[2022-10-06] MEDS ORDERED: Ketorolac Tromethamine 30 MG/ML VIAL ONE (18:30)
[2022-10-06 18:53] LABS: #Basophils 0.1 thou/uL (0.0-0.2); #Monocytes 1.1 thou/uL (0.11-0.59); #Neutrophils 12.3 thou/uL (1.40-6.50); %Basophils 0.4 % (0.0-1.0); %Eosinophils 0.2 % (0.0-10.0); %Lymphocytes 6.4 % (21.0-51.0); %Monocytes 7.4 % (0.0-10.0); Hemoglobin 8.9 g/dL (12.0-16.0); Mean Corpuscular HGB CONC 31.4 g/dL (32.0-36.0); Mean Corpuscular Hemoglobin 20.3 pg (27.0-31.0); Mean Corpuscular Volume 64.6 fl (78.0-98.0); Mean Platelet Volume 8.3 fL (7.4-10.4); Platelet Count 501 10x3/uL (130-400); Red Blood Cell (RBC) Count 4.38 mill/uL (4.20-5.40); White Blood Cell (WBC) Count 14.4 10x3/uL (4.8-10.8)
[2022-10-06 19:28] LABS: ALT (SGPT) 9 U/L (8-55); AST (SGOT) 15 U/L (5-34); Albumin 2.3 g/dL (3.4-4.8); Alkaline Phosphatase 106 U/L (40-110); Anion Gap 13 mmol/L (10-20); BUN (Urea Nitrogen) 19 mg/dL (9.8-20.1); Bilirubin, Total 0.2 mg/dL (0.2-1.2); Calc. Creatinine Clearance 0 mL/min (70-130); Calcium 8.4 mg/dL (7.8-10.44); Carbon Dioxide 22 mmol/L (23-31); Chloride 100 mmol/L (98-107); Estimated GFR 100; Globulin 3.4 g/dL (2.4-3.5); Glucose 83 mg/dL (80-115); Potassium 3.7 mmol/L (3.5-5.1); Protein, Total 5.7 g/dL (5.8-8.1); Sodium 131 mmol/L (136-145)
[2022-10-06 19:35] LABS: Anisocytosis SLIGHT = 6-15 cells HPF (0-5); Burr Cells SLIGHT = 2-5 cells HPF (0-1); CellaVision Operator ID LAB.KB; Hypochromia SLIGHT = 6-15 cells HPF (0-5); Microcytosis SLIGHT = 6-15 cells HPF (0-5); Ovalocytes SLIGHT = 2-5 cells HPF (0-1); Platelet Adequacy Comment Platelets Increased; Polychromasia SLIGHT = 2-3 cells HPF (0-2); Target Cells MODERATE= 6-15 cells HPF (0-1)
[2022-10-06] MEDS ORDERED: Calcium Carbonate 500 MG ChewTAB PO PRN (20:19)
[2022-10-06] MEDS ORDERED: Senokot S 8.6-50 MG TAB PO PRN (20:19)
[2022-10-06] MEDS ORDERED: Acetaminophen 325 MG TAB PO PRN (20:19)
[2022-10-06 22:03] VITALS: BMI 20.3
[2022-10-06] MEDS: Famotidine 20 MG TAB PO SCH (22:34)
[2022-10-06] MEDS: Morphine ER 15 MG TAB PO SCH (22:34)
[2022-10-06] MEDS: Iron, Sodium Ferric Gluconate 250 MG in Sodium Chloride 0.9% 250 ML 250 ML IVPB SCH (23:17)
[2022-10-07] MEDS: HYDROcodone/Acetaminophen 5/325 mg Tablet PO PRN (04:50)
[2022-10-07] MEDS: Ondansetron ODT 4 MG TAB PO PRN ×2 (05:29→11:20)
[2022-10-07 05:31] LABS: #Basophils 0.1 thou/uL (0.0-0.2); #Eosinphils 0.1 thou/uL (0.0-0.7); #Monocytes 1.2 thou/uL (0.11-0.59); #Neutrophils 8.7 thou/uL (1.40-6.50); %Basophils 0.6 % (0.0-1.0); %Eosinophils 1.3 % (0.0-10.0); %Lymphocytes 8.9 % (21.0-51.0); %Monocytes 10.4 % (0.0-10.0); %Neutrophils 78.3 % (42.0-75.0); Hemoglobin 8.2 g/dL (12.0-16.0); Mean Corpuscular HGB CONC 30.5 g/dL (32.0-36.0); Mean Corpuscular Hemoglobin 20.2 pg (27.0-31.0); Mean Corpuscular Volume 66.3 fl (78.0-98.0); Mean Platelet Volume 8.9 fL (7.4-10.4); Platelet Count 448 10x3/uL (130-400); RBC Distribution Width 20.5 % (11.5-14.5); Red Blood Cell (RBC) Count 4.06 mill/uL (4.20-5.40); White Blood Cell (WBC) Count 11.1 10x3/uL (4.8-10.8)
[2022-10-07 05:56] LABS: Anion Gap 13 mmol/L (10-20); BUN (Urea Nitrogen) 19 mg/dL (9.8-20.1); Calc. Creatinine Clearance 91 mL/min (70-130); Carbon Dioxide 20 mmol/L (23-31); Chloride 103 mmol/L (98-107); Estimated GFR 104; Glucose 78 mg/dL (80-115); Potassium 3.5 mmol/L (3.5-5.1); Sodium 132 mmol/L (136-145)
[2022-10-07] MEDS: Morphine ER 15 MG TAB PO SCH ×2 (08:44→20:45)
[2022-10-07] MEDS: Famotidine 20 MG TAB PO SCH ×2 (08:45→20:45)
[2022-10-07] MEDS: Loperamide HCl 2 MG CAP PO PRN ×2 (09:24→11:20)
[2022-10-07] MEDS: Iron, Sodium Ferric Gluconate 250 MG in Sodium Chloride 0.9% 250 ML 250 ML IVPB SCH (09:25)
[2022-10-07] MEDS: Apixaban 5 MG TAB PO SCH (20:45)
[2022-10-08 04:29] LABS: #Basophils 0.1 thou/uL (0.0-0.2); #Eosinphils 0.1 thou/uL (0.0-0.7); #Monocytes 1.3 thou/uL (0.11-0.59); #Neutrophils 8.2 thou/uL (1.40-6.50); %Basophils 0.5 % (0.0-1.0); %Eosinophils 1.2 % (0.0-10.0); %Lymphocytes 9.9 % (21.0-51.0); %Monocytes 12.1 % (0.0-10.0); %Neutrophils 75.9 % (42.0-75.0); Hemoglobin 7.8 g/dL (12.0-16.0); Mean Corpuscular HGB CONC 30.1 g/dL (32.0-36.0); Mean Corpuscular Hemoglobin 20.6 pg (27.0-31.0); Mean Platelet Volume 8.8 fL (7.4-10.4); Platelet Count 493 10x3/uL (130-400); RBC Distribution Width 20.8 % (11.5-14.5); Red Blood Cell (RBC) Count 3.78 mill/uL (4.20-5.40); White Blood Cell (WBC) Count 10.8 10x3/uL (4.8-10.8)
[2022-10-08 04:33] LABS: Mean Corpuscular Volume 68.5 fl (78.0-98.0)
[2022-10-08 04:52] LABS: Anion Gap 12 mmol/L (10-20); BUN (Urea Nitrogen) 17 mg/dL (9.8-20.1); Calc. Creatinine Clearance 95 mL/min (70-130); Calcium 8.1 mg/dL (7.8-10.44); Carbon Dioxide 20 mmol/L (23-31); Chloride 105 mmol/L (98-107); Estimated GFR 105; Glucose 72 mg/dL (80-115); Potassium 3.8 mmol/L (3.5-5.1); Sodium 133 mmol/L (136-145)
[2022-10-08] MEDS: HYDROcodone/Acetaminophen 5/325 mg Tablet PO PRN (05:39)
[2022-10-08 07:58] VITALS: BP 112/60; TEMP 97.5
[2022-10-08] MEDS: Morphine ER 15 MG TAB PO SCH (08:52)
[2022-10-08] MEDS: Apixaban 5 MG TAB PO SCH (08:54)
[2022-10-08] MEDS: Famotidine 20 MG TAB PO SCH (08:54)
[2022-10-08] MEDS: Loperamide HCl 2 MG CAP PO PRN (10:40)
[2022-10-14] MEDS ORDERED: Apixaban 5 MG TAB PO SCH (21:00)
== END 2022-10-08 11:47 | disposition home or self-care (01) | DRG 299 ==
LOC: ERS 16:42 → 2NO 20:36
PROVIDERS: ADMIT Student in an Organized Health Care Education/Training Program; ATTEND Emergency Medicine
DX: I82.402 Acute embolism and thrombosis of unspecified deep veins of left lower extremity (principal); I26.93 Single subsegmental thrombotic pulmonary embolism without acute cor pulmonale; E87.1 Hypo-osmolality and hyponatremia; N13.30 Unspecified hydronephrosis; C17.9 Malignant neoplasm of small intestine, unspecified; C19 Malignant neoplasm of rectosigmoid junction; D50.9 Iron deficiency anemia, unspecified; I95.9 Hypotension, unspecified; G89.3 Neoplasm related pain (acute) (chronic); Z66 Do not resuscitate; Z96.641 Presence of right artificial hip joint; M19.90 Unspecified osteoarthritis, unspecified site; D72.829 Elevated white blood cell count, unspecified; D63.0 Anemia in neoplastic disease; Z82.49 Family history of ischemic heart disease and other diseases of the circulatory system; Z79.899 Other long term (current) drug therapy
CPT/HCPCS: 36415; 71045; 71275; 80048; 80053; 83880; 84484; 85025; 85379; 93005; 96361; 96372; 96374; 96375; J1642; J1650; J1885; J2270; J2916; J7050; Q0162; Q9967

== ENCOUNTER 2022-10-08 20:58 | Inpatient (IN) | payer SELFPAY ==
[2022-10-08] MEDS ORDERED: Morphine 4 MG/ML VIAL ONE (22:57)
[2022-10-08 23:20] LABS: #Eosinphils 0.1 thou/uL (0.0-0.7); #Monocytes 1.2 thou/uL (0.11-0.59); #Neutrophils 10.1 thou/uL (1.40-6.50); %Basophils 0.3 % (0.0-1.0); %Eosinophils 0.4 % (0.0-10.0); %Neutrophils 82.8 % (42.0-75.0); Hemoglobin 7.4 g/dL (12.0-16.0); Mean Corpuscular HGB CONC 30.8 g/dL (32.0-36.0); Mean Corpuscular Hemoglobin 20.3 pg (27.0-31.0); Mean Platelet Volume 8.6 fL (7.4-10.4); Platelet Count 506 10x3/uL (130-400); RBC Distribution Width 19.9 % (11.5-14.5); Red Blood Cell (RBC) Count 3.64 mill/uL (4.20-5.40); White Blood Cell (WBC) Count 12.3 10x3/uL (4.8-10.8)
[2022-10-08 23:28] LABS: Mean Corpuscular Volume 65.9 fl (78.0-98.0)
[2022-10-08 23:35] LABS: ALT (SGPT) 8 U/L (8-55); AST (SGOT) 35 U/L (5-34); Albumin 1.8 g/dL (3.4-4.8); Alkaline Phosphatase 99 U/L (40-110); Anion Gap 13 mmol/L (10-20); BUN (Urea Nitrogen) 20 mg/dL (9.8-20.1); Bilirubin, Total 0.2 mg/dL (0.2-1.2); Calc. Creatinine Clearance 0 mL/min (70-130); Carbon Dioxide 20 mmol/L (23-31); Chloride 103 mmol/L (98-107); Estimated GFR 107; Globulin 2.8 g/dL (2.4-3.5); Glucose 80 mg/dL (80-115); Potassium 3.8 mmol/L (3.5-5.1); Protein, Total 4.6 g/dL (5.8-8.1); Sodium 132 mmol/L (136-145)
[2022-10-09] MEDS ORDERED: Loperamide HCl 2 MG CAP PO PRN (00:18)
[2022-10-09] MEDS ORDERED: Calcium Carbonate 500 MG ChewTAB PO PRN (00:18)
[2022-10-09] MEDS ORDERED: Acetaminophen 325 MG TAB PO PRN (00:19)
[2022-10-09 01:11] LABS: Bilirubin Negative (Negative); Blood, Urine 3+ (Negative); CAUTI Indications for Culture Acute Hematuria; Clarity Turbid (Clear); Glucose, Urine (Dipstick) Normal (Negative); Ketone, Urine Negative (Negative); Leukocyte 500 Leu/uL (Negative); Nitrite 1+ (Negative); Protein, Urine (Dipstick) 50 mg/dL (Neg-Trace); RBC/HPF Greater than 50 HPF (0-3); Specific Gravity, Urine 1.014 (1.002-1.036); Squamous Epithelial 0-3 HPF (0-3); Urobilinogen Normal mg/dL (Less than 2); WBC/HPF Greater than 50 HPF (0-3)
[2022-10-09 01:14] LABS: Bacteria/HPF 1+ HPF (None Seen)
[2022-10-09 01:15] LABS: Urine Culture Reflex Yes Yes
[2022-10-09 01:57] VITALS: BMI 20.8
[2022-10-09] MEDS: cefTRIAXone\\ROCEPHIN 1 GM in Sodium Chloride 0.9% 100 ML IVPB SCH (02:19)
[2022-10-09 06:16] LABS: #Eosinphils 0.1 thou/uL (0.0-0.7); #Monocytes 1.2 thou/uL (0.11-0.59); #Neutrophils 8.2 thou/uL (1.40-6.50); %Basophils 0.4 % (0.0-1.0); %Eosinophils 1.2 % (0.0-10.0); %Lymphocytes 10.3 % (21.0-51.0); %Monocytes 11.2 % (0.0-10.0); %Neutrophils 76.2 % (42.0-75.0); Hemoglobin 7.1 g/dL (12.0-16.0); Mean Corpuscular HGB CONC 30.6 g/dL (32.0-36.0); Mean Corpuscular Hemoglobin 20.3 pg (27.0-31.0); Mean Platelet Volume 8.5 fL (7.4-10.4); Platelet Count 546 10x3/uL (130-400); RBC Distribution Width 20.3 % (11.5-14.5); White Blood Cell (WBC) Count 10.7 10x3/uL (4.8-10.8)
[2022-10-09 06:29] LABS: Mean Corpuscular Volume 66.3 fl (78.0-98.0)
[2022-10-09 06:48] LABS: Anion Gap 8 mmol/L (10-20); BUN (Urea Nitrogen) 20 mg/dL (9.8-20.1); Calc. Creatinine Clearance 101 mL/min (70-130); Calcium 7.7 mg/dL (7.8-10.44); Carbon Dioxide 23 mmol/L (23-31); Chloride 105 mmol/L (98-107); Estimated GFR 106; Glucose 73 mg/dL (80-115); Potassium 3.9 mmol/L (3.5-5.1); Sodium 132 mmol/L (136-145)
[2022-10-09] MEDS: Ferrous Sulfate 325 MG TAB PO SCH ×2 (08:40→16:54)
[2022-10-09] MEDS: Morphine ER 15 MG TAB PO SCH ×2 (08:40→19:54)
[2022-10-09] MEDS: Famotidine 20 MG TAB PO SCH ×2 (08:40→19:55)
[2022-10-09] MEDS: HYDROcodone/Acetaminophen 5/325 mg Tablet PO PRN ×2 (12:32→22:31)
[2022-10-09] MEDS: Ondansetron ODT 4 MG TAB PO PRN (12:32)
[2022-10-10] MEDS: cefTRIAXone\\ROCEPHIN 1 GM in Sodium Chloride 0.9% 100 ML IVPB SCH (01:12)
[2022-10-10 07:26] LABS: #Eosinphils 0.1 thou/uL (0.0-0.7); #Monocytes 1.2 thou/uL (0.11-0.59); #Neutrophils 8.8 thou/uL (1.40-6.50); %Basophils 0.4 % (0.0-1.0); %Eosinophils 1.3 % (0.0-10.0); %Lymphocytes 7.1 % (21.0-51.0); %Monocytes 10.7 % (0.0-10.0); %Neutrophils 79.8 % (42.0-75.0); Hemoglobin 6.7 g/dL (12.0-16.0); Mean Corpuscular HGB CONC 30.7 g/dL (32.0-36.0); Mean Corpuscular Hemoglobin 20.4 pg (27.0-31.0); Mean Corpuscular Volume 66.3 fl (78.0-98.0); Mean Platelet Volume 8.4 fL (7.4-10.4); Platelet Count 547 10x3/uL (130-400); Red Blood Cell (RBC) Count 3.29 mill/uL (4.20-5.40)
[2022-10-10 07:57] LABS: Anion Gap 11 mmol/L (10-20); BUN (Urea Nitrogen) 16 mg/dL (9.8-20.1); Calc. Creatinine Clearance 107 mL/min (70-130); Calcium 7.9 mg/dL (7.8-10.44); Carbon Dioxide 21 mmol/L (23-31); Chloride 105 mmol/L (98-107); Estimated GFR 108; Glucose 80 mg/dL (80-115); Potassium 3.7 mmol/L (3.5-5.1); Sodium 133 mmol/L (136-145)
[2022-10-10] MEDS: Famotidine 20 MG TAB PO SCH (08:59)
[2022-10-10] MEDS: Ferrous Sulfate 325 MG TAB PO SCH ×2 (08:59→20:35)
[2022-10-10] MEDS: Morphine ER 15 MG TAB PO SCH ×2 (08:59→20:36)
[2022-10-10] MEDS: Ondansetron ODT 4 MG TAB PO PRN (16:13)
[2022-10-10] MEDS: HYDROcodone/Acetaminophen 5/325 mg Tablet PO PRN (16:13)
[2022-10-11] MEDS: cefTRIAXone\\ROCEPHIN 1 GM in Sodium Chloride 0.9% 100 ML IVPB SCH (01:37)
[2022-10-11] MEDS: HYDROcodone/Acetaminophen 5/325 mg Tablet PO PRN ×2 (03:04→19:03)
[2022-10-11 06:35] LABS: #Eosinphils 0.1 thou/uL (0.0-0.7); #Monocytes 1.2 thou/uL (0.11-0.59); #Neutrophils 9.6 thou/uL (1.40-6.50); %Basophils 0.3 % (0.0-1.0); %Eosinophils 0.8 % (0.0-10.0); %Lymphocytes 8.2 % (21.0-51.0); %Monocytes 9.9 % (0.0-10.0); %Neutrophils 80.2 % (42.0-75.0); Hemoglobin 8.1 g/dL (12.0-16.0); Mean Corpuscular HGB CONC 31.3 g/dL (32.0-36.0); Mean Corpuscular Hemoglobin 21.4 pg (27.0-31.0); Mean Platelet Volume 8.4 fL (7.4-10.4); Platelet Count 574 10x3/uL (130-400); RBC Distribution Width 20.7 % (11.5-14.5); Red Blood Cell (RBC) Count 3.78 mill/uL (4.20-5.40)
[2022-10-11 07:00] LABS: Anion Gap 11 mmol/L (10-20); BUN (Urea Nitrogen) 12 mg/dL (9.8-20.1); Calc. Creatinine Clearance 103 mL/min (70-130); Calcium 7.8 mg/dL (7.8-10.44); Carbon Dioxide 21 mmol/L (23-31); Chloride 103 mmol/L (98-107); Estimated GFR 107; Glucose 68 mg/dL (80-115); Potassium 3.3 mmol/L (3.5-5.1); Sodium 132 mmol/L (136-145)
[2022-10-11] MEDS ORDERED: Potassium Chloride 20 MEQ TAB PO SCH (08:30)
[2022-10-11 09:02] LABS: Burr Cells MODERATE= 6-15 cells HPF (0-1); CellaVision Operator ID LAB.GE; Hypochromia SLIGHT = 6-15 cells HPF (0-5); Microcytosis MODERATE=15-30 cells HPF (0-5); Platelet Adequacy Comment Platelets Increased; Polychromasia SLIGHT = 2-3 cells HPF (0-2); Target Cells SLIGHT = 2-5 cells HPF (0-1)
[2022-10-11 09:10] LABS: Mean Corpuscular Volume 68.5 fl (78.0-98.0)
[2022-10-11] MEDS: Apixaban 5 MG TAB PO SCH ×2 (09:14→20:23)
[2022-10-11] MEDS: Ferrous Sulfate 325 MG TAB PO SCH ×2 (09:14→17:34)
[2022-10-11] MEDS: Morphine ER 15 MG TAB PO SCH ×2 (09:15→20:23)
[2022-10-12] MEDS: cefTRIAXone\\ROCEPHIN 1 GM in Sodium Chloride 0.9% 100 ML IVPB SCH (00:30)
[2022-10-12] MEDS: HYDROcodone/Acetaminophen 5/325 mg Tablet PO PRN (05:17)
[2022-10-12 07:25] LABS: #Eosinphils 0.1 thou/uL (0.0-0.7); #Monocytes 1.5 thou/uL (0.11-0.59); #Neutrophils 9.9 thou/uL (1.40-6.50); %Basophils 0.3 % (0.0-1.0); %Eosinophils 0.8 % (0.0-10.0); %Lymphocytes 7.6 % (21.0-51.0); %Monocytes 12.2 % (0.0-10.0); %Neutrophils 78.4 % (42.0-75.0); Hemoglobin 7.6 g/dL (12.0-16.0); Mean Corpuscular HGB CONC 31.5 g/dL (32.0-36.0); Mean Corpuscular Hemoglobin 21.5 pg (27.0-31.0); Mean Corpuscular Volume 68.1 fl (78.0-98.0); Mean Platelet Volume 8.4 fL (7.4-10.4); Platelet Count 547 10x3/uL (130-400); RBC Distribution Width 20.7 % (11.5-14.5); Red Blood Cell (RBC) Count 3.54 mill/uL (4.20-5.40); White Blood Cell (WBC) Count 12.7 10x3/uL (4.8-10.8)
[2022-10-12 07:52] LABS: Anion Gap 11 mmol/L (10-20); BUN (Urea Nitrogen) 14 mg/dL (9.8-20.1); Calc. Creatinine Clearance 114 mL/min (70-130); Calcium 7.9 mg/dL (7.8-10.44); Carbon Dioxide 17 mmol/L (23-31); Chloride 106 mmol/L (98-107); Estimated GFR 109; Glucose 81 mg/dL (80-115); Potassium 3.4 mmol/L (3.5-5.1); Sodium 131 mmol/L (136-145)
[2022-10-12] MEDS: Morphine ER 15 MG TAB PO SCH (08:59)
[2022-10-12] MEDS: Ferrous Sulfate 325 MG TAB PO SCH (08:59)
[2022-10-12] MEDS: Apixaban 5 MG TAB PO SCH (08:59)
[2022-10-12 10:00] LABS: Burr Cells SLIGHT = 2-5 cells HPF (0-1); CellaVision Operator ID LAB.GE; Microcytosis MODERATE=15-30 cells HPF (0-5); Platelet Adequacy Comment Platelets Increased; Polychromasia SLIGHT = 2-3 cells HPF (0-2); Target Cells SLIGHT = 2-5 cells HPF (0-1)
[2022-10-12 12:17] VITALS: BP 109/72; TEMP 97.9
== END 2022-10-12 12:01 | disposition home or self-care (01) | DRG 696 ==
LOC: ERS 20:58 → T4-A 23:59 → OBSVTOIN 10-10 10:02
PROVIDERS: ADMIT Student in an Organized Health Care Education/Training Program; ATTEND Internal Medicine
PROC: 30233N1 Transfusion of Nonautologous Red Blood Cells into Peripheral Vein, Percutaneous Approach (ICD-10-PCS; principal; 2022-10-10)
DX: R31.9 Hematuria, unspecified (principal); K92.1 Melena; E87.1 Hypo-osmolality and hyponatremia; N39.0 Urinary tract infection, site not specified; Z96.642 Presence of left artificial hip joint; E87.6 Hypokalemia; E88.09 Other disorders of plasma-protein metabolism, not elsewhere classified; D64.9 Anemia, unspecified; M19.90 Unspecified osteoarthritis, unspecified site; Z86.711 Personal history of pulmonary embolism; Z86.718 Personal history of other venous thrombosis and embolism; Z79.01 Long term (current) use of anticoagulants; Z85.038 Personal history of other malignant neoplasm of large intestine; Z85.048 Personal history of other malignant neoplasm of rectum, rectosigmoid junction, and anus; Z79.899 Other long term (current) drug therapy; Z82.49 Family history of ischemic heart disease and other diseases of the circulatory system; Z80.42 Family history of malignant neoplasm of prostate; Z80.8 Family history of malignant neoplasm of other organs or systems
CPT/HCPCS: 36415; 36430; 80048; 81001; 85025; 86850; 86900; 86901; 87077; 87086; 87186; 93970; 96374; 96375; 96376; G0378; J0696; J1642; J2270; J3490; P9016; Q0162

== ENCOUNTER 2022-10-25 16:02 | Inpatient (IN) | payer SELFPAY ==
[2022-10-25] MEDS ORDERED: Cefepime 2 GM VIAL ONE (16:22)
[2022-10-25] MEDS ORDERED: NOREPINEPHRINE 8 MG/250 ML-D5W 250 ML ONE (16:44)
[2022-10-25 17:16] LABS: #Neutrophils 17.5 thou/uL (1.40-6.50); %Basophils 0.1 % (0.0-1.0); %Eosinophils 0.1 % (0.0-10.0); %Lymphocytes 2.5 % (21.0-51.0); %Monocytes 5.1 % (0.0-10.0); %Neutrophils 91.6 % (42.0-75.0); Hemoglobin 4.8 g/dL (12.0-16.0); Mean Corpuscular Hemoglobin 21.1 pg (27.0-31.0); Mean Corpuscular Volume 65.8 fl (78.0-98.0); Mean Platelet Volume 8.6 fL (7.4-10.4); Platelet Count 627 10x3/uL (130-400); RBC Distribution Width 22.1 % (11.5-14.5); Red Blood Cell (RBC) Count 2.28 mill/uL (4.20-5.40); White Blood Cell (WBC) Count 19.1 10x3/uL (4.8-10.8)
[2022-10-25 17:31] LABS: INR-International Normal Ratio 1.9; Prothrombin Time 22.4 sec (12.0-14.7)
[2022-10-25 17:32] LABS: PTT 44.9 sec (22.9-36.1)
[2022-10-25 17:37] LABS: Anisocytosis SLIGHT = 6-15 cells (100X) (0-5/hpf); Hypochromia SLIGHT = 6-15 cells (100X) (0-5/hpf); Microcytosis SLIGHT = 6-15 cells (100X) (0-5/hpf); Target Cells SLIGHT = 2-5 cells (100X) (0-1/hpf)
[2022-10-25 17:38] LABS: Platelet Adequacy Comment Appears Increased; Polychromasia MODERATE = 3-4 cells (100X) (0-2/hpf)
[2022-10-25 17:41] LABS: Actual Bicarbonate (HCO3v) 20.6 mEq/L (22-28); Base Excess -3.8 mEq/L (-2.0 to +3.0); Calcium, Ionized (venous) 1.04 mmol/L (1.16-1.32); Chloride (VBG) 104 mmol/L (98-106); Hematocrit-VBG 14 % (36.0-47.0); Sodium 125.6 mmol/L (133-146); pH (venous) 7.411 (7.32-7.43)
[2022-10-25 17:42] LABS: ALT (SGPT) Less than 7 U/L (8-55); AST (SGOT) 12 U/L (5-34); Albumin 1.4 g/dL (3.4-4.8); Alkaline Phosphatase 117 U/L (40-110); Anion Gap 12 mmol/L (10-20); BUN (Urea Nitrogen) 16 mg/dL (9.8-20.1); Bilirubin, Total 0.2 mg/dL (0.2-1.2); Calc. Creatinine Clearance 0 mL/min (70-130); Carbon Dioxide 18 mmol/L (23-31); Chloride 104 mmol/L (98-107); Estimated GFR 107; Globulin 2.7 g/dL (2.4-3.5); Glucose 94 mg/dL (80-115); Potassium 2.8 mmol/L (3.5-5.1); Protein, Total 4.1 g/dL (5.8-8.1); Sodium 131 mmol/L (136-145)
[2022-10-25 17:43] LABS: Hemoglobin (Hb) 4.9 g/dL (11.7-16.0)
[2022-10-25 17:44] LABS: Potassium (VBG) 2.58 mmol/L (3.70-5.30)
[2022-10-25 17:49] LABS: Calcium 6.8 mg/dL (7.8-10.44); Critical Call Chemistry NUR.KR7@1748
[2022-10-25] MEDS ORDERED: Magnesium 2 GM/50 ML BAG (IN WATER) ONE (18:04)
[2022-10-25] MEDS ORDERED: Potassium Chloride 20 MEQ TAB ONE (18:04)
[2022-10-25] MEDS ORDERED: CALCIUM GLUC 1 GM/NS 50 ML BAG ONE (18:04)
[2022-10-25] MEDS ORDERED: Vancomycin 1 GM/200 ML (FROZEN) BAG ONE (18:10)
[2022-10-25 18:18] LABS: Bilirubin Negative (Negative); Blood, Urine 2+ (Negative); CAUTI Indications for Culture Alt mental st,lethar; Clarity Turbid (Clear); Glucose, Urine (Dipstick) Normal (Negative); Ketone, Urine Negative (Negative); Leukocyte 500 Leu/uL (Negative); Nitrite 1+ (Negative); Protein, Urine (Dipstick) 20 mg/dL (Neg-Trace); Specific Gravity, Urine 1.016 (1.002-1.036); Squamous Epithelial 0-3 HPF (0-3); Urobilinogen Normal mg/dL (Less than 2); WBC/HPF Greater than 50 HPF (0-3)
[2022-10-25 18:26] LABS: Bacteria/HPF 3+ HPF (None Seen)
[2022-10-25 18:27] LABS: Urine Culture Reflex Yes Yes
[2022-10-25] MEDS ORDERED: Electrolyte Replacement Protocol FS SCH (18:45)
[2022-10-25] MEDS ORDERED: HYDROcodone/Acetaminophen 5/325 mg Tablet PO PRN (21:11)
[2022-10-25] MEDS: Sodium Chloride 0.9% 1,000 ML IV SCH (21:22)
[2022-10-25] MEDS: Albumin 25% 25 GM/100 ML BOT IVPB SCH (21:54)
[2022-10-25] MEDS ORDERED: NOREPINEPHRINE 8 MG/250 ML-D5W 250 ML IVPB SCH ×2 (22:30)
[2022-10-25] MEDS: HYDROcodone/Acetaminophen 5/325 mg Tablet PO PRN (22:51)
[2022-10-26 01:10] LABS: Mean Corpuscular HGB CONC 32.5 g/dL (32.0-36.0); Mean Platelet Volume 8.4 fL (7.4-10.4); RBC Distribution Width 26.2 % (11.5-14.5); Red Blood Cell (RBC) Count 3.84 mill/uL (4.20-5.40); White Blood Cell (WBC) Count 20.1 10x3/uL (4.8-10.8)
[2022-10-26 01:19] LABS: Hematocrit 29.5 % (36.0-47.0); Hemoglobin 9.6 g/dL (12.0-16.0); Mean Corpuscular Volume 76.8 fl (78.0-98.0); Platelet Count 527 10x3/uL (130-400)
[2022-10-26] MEDS: Vancomycin HCl 750 MG in Sodium Chloride 0.9% 250 ML 250 ML IVPB SCH ×2 (01:23→09:28)
[2022-10-26 01:35] LABS: Anion Gap 12 mmol/L (10-20); BUN (Urea Nitrogen) 15 mg/dL (9.8-20.1); Calc. Creatinine Clearance 112 mL/min (70-130); Calcium 7.5 mg/dL (7.8-10.44); Carbon Dioxide 16 mmol/L (23-31); Chloride 105 mmol/L (98-107); Estimated GFR 107; Glucose 83 mg/dL (80-115); Magnesium 1.6 mg/dL (1.6-2.6); Sodium 130 mmol/L (136-145)
[2022-10-26] MEDS: Potassium Chloride 20 MEQ in Premix Bag 1 BAG IVPB SCH ×2 (02:35→04:23)
[2022-10-26] MEDS ORDERED: Morphine 2 MG/ML VIAL SLOW IVP SCH ×2 (03:00→03:15)
[2022-10-26 03:24] VITALS: BMI 23.1
[2022-10-26] MEDS ORDERED: VANCOMYCIN 1.25 GM/250 ML BAG 1.25 GM in Premix Bag 1 BAG IVPB SCH (04:00)
[2022-10-26] MEDS: Albumin 25% 25 GM/100 ML BOT IVPB SCH ×3 (05:06→18:18)
[2022-10-26] MEDS: Cefepime 2 GM in Sodium Chloride 0.9% 100 ML IVPB SCH ×2 (05:26→18:17)
[2022-10-26 06:02] LABS: #Basophils 0.1 thou/uL (0.0-0.2); #Eosinphils 0.1 thou/uL (0.0-0.7); #Monocytes 1.4 thou/uL (0.11-0.59); #Neutrophils 17.3 thou/uL (1.40-6.50); %Basophils 0.3 % (0.0-1.0); %Eosinophils 0.3 % (0.0-10.0); %Monocytes 7.1 % (0.0-10.0); %Neutrophils 87.7 % (42.0-75.0); Hematocrit 33.4 % (36.0-47.0); Hemoglobin 10.7 g/dL (12.0-16.0); Mean Corpuscular Hemoglobin 24.7 pg (27.0-31.0); Mean Platelet Volume 8.3 fL (7.4-10.4); Platelet Count 530 10x3/uL (130-400); Red Blood Cell (RBC) Count 4.34 mill/uL (4.20-5.40); White Blood Cell (WBC) Count 19.8 10x3/uL (4.8-10.8)
[2022-10-26 06:06] LABS: RBC Distribution Width 25.2 % (11.5-14.5)
[2022-10-26 06:18] LABS: INR-International Normal Ratio 1.5; Prothrombin Time 18.7 sec (12.0-14.7)
[2022-10-26 06:36] LABS: ALT (SGPT) 8 U/L (8-55); AST (SGOT) 15 U/L (5-34); Albumin 2.3 g/dL (3.4-4.8); Alkaline Phosphatase 129 U/L (40-110); Anion Gap 14 mmol/L (10-20); BUN (Urea Nitrogen) 14 mg/dL (9.8-20.1); Calc. Creatinine Clearance 107 mL/min (70-130); Calcium 7.9 mg/dL (7.8-10.44); Carbon Dioxide 13 mmol/L (23-31); Chloride 109 mmol/L (98-107); Estimated GFR 105; Globulin 2.9 g/dL (2.4-3.5); Glucose 68 mg/dL (80-115); Potassium 3.5 mmol/L (3.5-5.1); Protein, Total 5.2 g/dL (5.8-8.1); Sodium 132 mmol/L (136-145)
[2022-10-26] MEDS: HYDROcodone/Acetaminophen 5/325 mg Tablet PO PRN ×2 (07:29→16:15)
[2022-10-26] MEDS: Sodium Chloride 0.9% 1,000 ML IV SCH (07:58)
[2022-10-26] MEDS ORDERED: Magnesium 2 GM/50 ML(in water) 2 GM in Premix Bag 1 BAG IVPB SCH (08:00)
[2022-10-26] MEDS: Morphine ER 15 MG TAB PO SCH ×2 (09:12→20:53)
[2022-10-26 10:40] LABS: Potassium 3.4 mmol/L (3.5-5.1)
[2022-10-26] MEDS ORDERED: Potassium Chloride 20 MEQ TAB PO SCH (12:15)
[2022-10-26 17:41] LABS: Vancomycin, Trough 15.6 ug/mL
[2022-10-26] MEDS: Vancomycin HCl 500 MG in Sodium Chloride 0.9% 100 ML IVPB SCH (18:59)
[2022-10-27] MEDS: HYDROcodone/Acetaminophen 5/325 mg Tablet PO PRN ×3 (01:54→17:36)
[2022-10-27] MEDS: Sodium Chloride 0.9% 1,000 ML IV SCH ×2 (02:00→11:11)
[2022-10-27] MEDS: Vancomycin HCl 500 MG in Sodium Chloride 0.9% 100 ML IVPB SCH ×2 (03:50→10:27)
[2022-10-27 04:15] LABS: #Eosinphils 0.1 thou/uL (0.0-0.7); #Neutrophils 13.3 thou/uL (1.40-6.50); %Basophils 0.1 % (0.0-1.0); %Eosinophils 0.5 % (0.0-10.0); %Lymphocytes 4.4 % (21.0-51.0); %Monocytes 6.4 % (0.0-10.0); Hematocrit 24.6 % (36.0-47.0); Hemoglobin 8.3 g/dL (12.0-16.0); Mean Corpuscular HGB CONC 33.7 g/dL (32.0-36.0); Mean Corpuscular Hemoglobin 24.8 pg (27.0-31.0); Mean Platelet Volume 8.3 fL (7.4-10.4); Platelet Count 450 10x3/uL (130-400); RBC Distribution Width 24.4 % (11.5-14.5); Red Blood Cell (RBC) Count 3.35 mill/uL (4.20-5.40); White Blood Cell (WBC) Count 15.1 10x3/uL (4.8-10.8)
[2022-10-27 04:18] LABS: Mean Corpuscular Volume 73.4 fl (78.0-98.0)
[2022-10-27 04:46] LABS: ALT (SGPT) Less than 7 U/L (8-55); AST (SGOT) 9 U/L (5-34); Albumin 2.1 g/dL (3.4-4.8); Alkaline Phosphatase 84 U/L (40-110); Anion Gap 7 mmol/L (10-20); BUN (Urea Nitrogen) 13 mg/dL (9.8-20.1); Bilirubin, Total 0.8 mg/dL (0.2-1.2); Calc. Creatinine Clearance 132 mL/min (70-130); Calcium 7.4 mg/dL (7.8-10.44); Carbon Dioxide 16 mmol/L (23-31); Chloride 113 mmol/L (98-107); Estimated GFR 111; Globulin 1.9 g/dL (2.4-3.5); Glucose 74 mg/dL (80-115); Potassium 3.2 mmol/L (3.5-5.1); Sodium 133 mmol/L (136-145)
[2022-10-27] MEDS ORDERED: Potassium Chloride 20 MEQ TAB PO SCH (08:00)
[2022-10-27] MEDS: Morphine ER 15 MG TAB PO SCH ×2 (09:08→20:42)
[2022-10-27] MEDS: Cefepime 2 GM in Sodium Chloride 0.9% 100 ML IVPB SCH ×2 (09:16→17:36)
[2022-10-27 12:51] LABS: #Basophils 0.1 thou/uL (0.0-0.2); #Eosinphils 0.1 thou/uL (0.0-0.7); #Monocytes 1.1 thou/uL (0.11-0.59); #Neutrophils 16.2 thou/uL (1.40-6.50); %Basophils 0.3 % (0.0-1.0); %Eosinophils 0.3 % (0.0-10.0); %Monocytes 5.9 % (0.0-10.0); %Neutrophils 90.1 % (42.0-75.0); Hematocrit 28.9 % (36.0-47.0); Hemoglobin 9.7 g/dL (12.0-16.0); Mean Corpuscular HGB CONC 33.6 g/dL (32.0-36.0); Mean Corpuscular Hemoglobin 25.2 pg (27.0-31.0); Mean Corpuscular Volume 75.1 fl (78.0-98.0); Mean Platelet Volume 8.5 fL (7.4-10.4); Platelet Count 468 10x3/uL (130-400); RBC Distribution Width 25.2 % (11.5-14.5); Red Blood Cell (RBC) Count 3.85 mill/uL (4.20-5.40); White Blood Cell (WBC) Count 17.9 10x3/uL (4.8-10.8)
[2022-10-27 13:19] LABS: Manual Diff?? YES
[2022-10-27 13:25] LABS: Anisocytosis MODERATE=16-30 cells HPF (0-5); Band 39 % (5-11); Burr Cells MODERATE= 6-15 cells HPF (0-1); CellaVision Operator ID LAB.MJL; Hypochromia SLIGHT = 6-15 cells HPF (0-5); Lymphocytes 3 % (21-51); Microcytosis SLIGHT = 6-15 cells HPF (0-5); Monocytes 2 % (0-10); Neutrophil 57 % (42-75); Platelet Adequacy Comment Platelets Increased; Poikilocytosis MODERATE=16-30 cells HPF (0-5); Polychromasia MODERATE = 3-4 cells HPF (0-2); Reflex for Review?? YES; Target Cells SLIGHT = 2-5 cells HPF (0-1); Total Cell Count 116
[2022-10-28] MEDS: Sodium Chloride 0.9% 1,000 ML IV SCH (00:02)
[2022-10-28] MEDS: HYDROcodone/Acetaminophen 5/325 mg Tablet PO PRN ×3 (00:21→16:41)
[2022-10-28 05:18] LABS: #Basophils 0.1 thou/uL (0.0-0.2); #Eosinphils 0.2 thou/uL (0.0-0.7); #Monocytes 1.2 thou/uL (0.11-0.59); #Neutrophils 15.3 thou/uL (1.40-6.50); %Basophils 0.3 % (0.0-1.0); %Eosinophils 0.8 % (0.0-10.0); %Monocytes 6.5 % (0.0-10.0); %Neutrophils 86.8 % (42.0-75.0); Hematocrit 29.8 % (36.0-47.0); Hemoglobin 9.8 g/dL (12.0-16.0); Mean Corpuscular HGB CONC 32.9 g/dL (32.0-36.0); Mean Corpuscular Hemoglobin 24.9 pg (27.0-31.0); Mean Corpuscular Volume 75.6 fl (78.0-98.0); Mean Platelet Volume 8.4 fL (7.4-10.4); Platelet Count 442 10x3/uL (130-400); Red Blood Cell (RBC) Count 3.94 mill/uL (4.20-5.40); White Blood Cell (WBC) Count 17.7 10x3/uL (4.8-10.8)
[2022-10-28 05:37] LABS: ALT (SGPT) 9 U/L (8-55); AST (SGOT) 21 U/L (5-34); Albumin 2.1 g/dL (3.4-4.8); Alkaline Phosphatase 131 U/L (40-110); Anion Gap 10 mmol/L (10-20); BUN (Urea Nitrogen) 12 mg/dL (9.8-20.1); Calc. Creatinine Clearance 0 mL/min (70-130); Calcium 7.6 mg/dL (7.8-10.44); Carbon Dioxide 17 mmol/L (23-31); Chloride 109 mmol/L (98-107); Estimated GFR 112; Globulin 2.2 g/dL (2.4-3.5); Glucose 69 mg/dL (80-115); Potassium 3.2 mmol/L (3.5-5.1); Protein, Total 4.3 g/dL (5.8-8.1); Sodium 133 mmol/L (136-145)
[2022-10-28] MEDS: Cefepime 2 GM in Sodium Chloride 0.9% 100 ML IVPB SCH (06:01)
[2022-10-28] MEDS ORDERED: Potassium Bicarbonate/Cit Ac 20 MEQ TAB PO SCH (08:00)
[2022-10-28] MEDS: Morphine ER 15 MG TAB PO SCH (09:57)
[2022-10-28 15:52] VITALS: BP 105/77; TEMP 98
[2022-10-28] MEDS ORDERED: Ciprofloxacin 500 MG TAB PO SCH (20:00)
== END 2022-10-28 17:49 | disposition home or self-care (01) | DRG 871 ==
LOC: ERS 16:02 → CCU 18:02 → SURG A 10-27 22:55
PROVIDERS: ADMIT Internal Medicine; ATTEND Emergency Medicine
PROC: 30233N1 Transfusion of Nonautologous Red Blood Cells into Peripheral Vein, Percutaneous Approach (ICD-10-PCS; principal; 2022-10-25)
PROC: 4A043R1 Measurement of Venous Saturation, Peripheral, Percutaneous Approach (ICD-10-PCS; 2022-10-25)
PROC: 3E033XZ Introduction of Vasopressor into Peripheral Vein, Percutaneous Approach (ICD-10-PCS; 2022-10-25)
PROC: 3E03329 Introduction of Other Anti-infective into Peripheral Vein, Percutaneous Approach (ICD-10-PCS; 2022-10-25)
DX: A41.9 Sepsis, unspecified organism (principal); I26.99 Other pulmonary embolism without acute cor pulmonale; R65.21 Severe sepsis with septic shock; C18.9 Malignant neoplasm of colon, unspecified; N39.0 Urinary tract infection, site not specified; N13.30 Unspecified hydronephrosis; I82.412 Acute embolism and thrombosis of left femoral vein; Z66 Do not resuscitate; D64.9 Anemia, unspecified; R31.9 Hematuria, unspecified; M19.90 Unspecified osteoarthritis, unspecified site; D72.829 Elevated white blood cell count, unspecified; G89.29 Other chronic pain; C26.0 Malignant neoplasm of intestinal tract, part unspecified; Z99.3 Dependence on wheelchair; Z79.899 Other long term (current) drug therapy
CPT/HCPCS: 36415; 36416; 36430; 71045; 71275; 80053; 80202; 81001; 82533; 82805; 83605; 83735; 84145; 84484; 85025; 85610; 85730; 86850; 86900; 86901; 87040; 87077; 87086; 87186; 93005; J0613; J0692; J1642; J2272; J3370; J3370-JW; J3475; J3480; J3490; J7050; P9016; P9047; Q9967